=== PATIENT | female | born 1930 | race Caucasian/White ===

== ENCOUNTER → 2018-05-08 | Outpatient (CLI) | payer MEDICARE ==
[2017-11-23 07:53] VITALS: BP 120/63
[~2018-05-08] MED LIST: APIX5TAB PO; CITA10TA4 PO
--- NOTE | 2018-05-08 12:08 | KCIC ---
MRI of the lumbar spine without contrast 05/08/2018 CLINICAL HISTORY: Low back pain which radiates down the left hip for the last 2-3 months. TECHNIQUE: Unenhanced T1-weighted and T2-weighted sagittal and axial and inversion recovery sagittal images of the lumbar spine were obtained. FINDINGS: Very mild S-shaped curvature of the thoracolumbar spine is seen. Degenerative signal changes are seen involving all of the disks of the lumbar spine. An old appearing compression deformity of the superior endplate of the L1 vertebral body is seen. No retropulsion of bone fragments into the central spinal canal is noted. An acute compression fracture is seen involving the mid/inferior aspect of the L3 vertebral body. This vertebral body has lost approximately 30 percent of its normal height, centrally. No significant retropulsion of bone fragments into the central spinal canal is noted. No additional compression fracture of the lumbar vertebrae is seen. Degenerative signal changes are seen involving all of the disks of the lumbar spine. Degenerative signal changes are seen within the marrow surrounding these discs. Loss of height of the L4-5 disc is noted. The conus medullaris is normal morphology, position, and signal characteristics. Multiple perineural cysts are seen within the sacral spinal canal. These measure 1 to 2 cm in size. The changes of degenerative disc disease are seen throughout the lumbar disc spaces. These consist of minimal to mild generalized disc bulges, degenerative changes involving the facet joints and mild to moderate ligamentum flavum hypertrophy. These findings do not result in significant central spinal canal or neural foraminal stenosis at any level. IMPRESSION: An acute compression fracture is seen involving the L3 vertebral body as outlined above. No retropulsion of bone fragments into the central spinal canal is seen. Electronically signed by: Luis Reich MD (05/08/2018 12:05 PM) [facility]
== END | disposition home or self-care (01) ==
LOC: KCIC MRI 10:06
PROVIDERS: ATTEND Psychiatry & Neurology Neurology with Special Qualifications in Child Neurology
DX: S32.039A Unspecified fracture of third lumbar vertebra, initial encounter for closed fracture (principal); M51.36 Other intervertebral disc degeneration, lumbar region; C50.919 Malignant neoplasm of unspecified site of unspecified female breast; X58.XXXA Exposure to other specified factors, initial encounter; Y93.89 Activity, other specified; Y92.89 Other specified places as the place of occurrence of the external cause; Y99.8 Other external cause status
CPT/HCPCS: 72148

== ENCOUNTER 2018-05-30 08:31 | Outpatient (CLI) | payer MEDICARE ==
[~2018-05-30] VITALS: Ht 157.5 cm; Wt 48.1 kg
[2018-05-30] VITALS (9 sets, daily range): BP systolic 86–137; BP diastolic 49–79
[~2018-05-30 08:31] MED LIST changes: +ASPI81TA50 PO; +CLON0.5T11 PO; +ESCITALOPRAM OX10 MG PO; +MELO7.5T29 PO
[2018-05-30 09:01] LABS: BASO % 1 % (0-3); EOS # 0.2 x10^3/uL (0.0-0.7); EOS % 3 % (0-3); HEMATOCRIT 38.6 % (36.0-47.0); HEMOGLOBIN 13.2 g/dL (12.0-15.5); LYMPH # 1.1 x10^3/uL (1.0-4.8); LYMPH % 15 % (24-48); MEAN CORPUSCULAR HEMOGLOBIN 32 pg (25-35); MEAN CORPUSCULAR HGB CONC 34 g/dL (31-37); MEAN CORPUSCULAR VOLUME 94 fL (79-100); MONO % 14 % (0-9); NEUT # 4.6 x10^3uL (1.8-7.7); NEUT % 67 % (31-73); PLATELET COUNT 299 x10^3/uL (140-400); RED BLOOD COUNT 4.09 x10^6/uL (3.50-5.40); RED CELL DISTRIBUTION WIDTH 13.9 % (11.5-14.5); WHITE BLOOD COUNT 6.9 x10^3/uL (4.0-11.0)
[2018-05-30 09:22] LABS: PROTHROMBIN TIME PATIENT 12.8 SEC (11.7-14.0)
[2018-05-30] MEDS ORDERED: IOHEXOL 240 MG/ML 50ML VIAL. ONE (09:26)
[2018-05-30] MEDS ORDERED: LIDOCAINE WITH 8.4% SOD BICARB 3 ML DISP.SYRIN. ONE (09:26)
[2018-05-30] MEDS ORDERED: GADOBUTROL 7.5 MMOL/7.5 ML VIAL ONE ×2 (09:33→09:40)
[2018-05-30] MEDS ORDERED: MIDAZOLAM HCL/PF 2 MG/2 ML VIAL. ONE (09:36)
[2018-05-30] MEDS ORDERED: fentaNYL PF VIAL 100 MCG/2 ML VIAL ONE (09:36)
[2018-05-30] MEDS ORDERED: LIDOCAINE WITH 8.4% SOD BICARB 3 ML DISP.SYRIN. IJ ONE (10:45)
[2018-05-30] MEDS ORDERED: MIDAZOLAM HCL/PF 2 MG/2 ML VIAL. IV ONE (10:45)
[2018-05-30] MEDS ORDERED: fentaNYL PF VIAL 100 MCG/2 ML VIAL IV ONE (10:45)
[2018-05-30] MEDS ORDERED: GADOBUTROL 7.5 MMOL/7.5 ML VIAL IV ONE (10:45)
--- NOTE | 2018-05-30 12:38 | RAD ---
Fluoroscopically guided kyphoplasty, L3 05/30/2018 Indication:L3 compression fracture with significant pain refractory to conservative treatment measures. Fluoroscopy time: 7.8 minutes Dose area product: 36 Gycm2 Moderate sedation: The patient was appropriately monitored by a qualified independent observer throughout the course of the moderate sedation. Flcr-yc-nbeu sedation time:33 minutes Consent: The risks and benefits of the procedure were discussed with the patient. Informed consent was obtained. The patient was brought to the fluoroscopy suite and placed in the prone position. A timeout procedure was performed. Preprocedural antibiotics were administered. Procedure: The overlying skin was prepped and draped in the usual sterile fashion. All elements of maximal sterile barrier technique including the use of a cap, mask, sterile gown, sterile gloves, large sterile sheet, appropriate hand hygiene, and 2% chlorhexidine for cutaneous antisepsis (or acceptable alternative antiseptic per current guidelines) were followed for this procedure. Using a left transpedicular approach, and direct fluoroscopic guidance, a trocar needle was advanced to the posterior third of the targeted vertebral body. Vertebral augmentation balloon was then coaxially introduced through the needle, into the more central vertebral body and was deployed. A curved cement delivery needle was advanced into the contralateral vertebral body. Contrast opacified polymethylmethacrylate was then very slowly and carefully introduced through the vertebral augmentation needle, using strict fluoroscopic control. Once adequate filling had been achieved the needles were removed and manual pressure was held. No significant extravasation or complication was identified. Sterile dressing was applied. Patient tolerated the procedure well, without apparent complication. Impression: Fluoroscopically guided kyphoplasty, L3
--- NOTE | 2018-05-30 13:27 | NUR ---
Discharge Note: VICKIE LAU Discharge instructions and discharge home medications reviewed with Patient and a copy given. All questions have been answered and understanding verbalized. The following instructions and handouts were given: vertebralplasty aftercare and adult moderate sedation Discontinued lines and drains: Peripheral IV intact. Patient discharged to Home or Self Care withSpousevia Wheelchair
--- NOTE | 2018-05-31 18:07 | PATHOLOGY ---
[facility] Accession Number: [id number] . 01 Material submitted: . L3 CORE BIOPSY . 01 Clinical history: . L3 compression fracture . 02 Diagnosis: Segments of bone, L3 core biopsy: - Segments of hematopoietic marrow and a few bony spicules identified. See comment. . (JPM/at;05/31/2018) QTA/05/31/2018 . 02 Comment: Sections of the L3 core biopsy reveal segments of hematopoietic marrow and few bony spicules. There is no evidence of metastatic carcinoma or lymphoma. There is no evidence of a plasma cell neoplasm. . (JPM/at;05/31/2018) . 02 Electronically signed: . rTell Collins MD, Pathologist NPI- [id number] . 01 Gross description: . Received in formalin labeled "Deborah Matos, L3 biopsy," are 2 needle cores of dark smith bone measuring 0.4 and 0.9 cm in length and 0.3 cm each in diameter. The specimen is filtered and entirely submitted in cassette A1, following decalcification. (TSD; 05/30/2018) TOB/TOB . 02 Pathologist provided ICD-10: M89.9 . 02 CPT . 344872, [id number] Specimen Comment: A courtesy copy of this report has been sent to Specimen Comment: [phone]. Specimen Comment: Report sent to Performed at: 01 [facility] [address], [place] [id number] MD Rodrigue Waller MD Phone: [phone] Performed at: 02 [facility] [address] [place], [place] [id number] MD Trell Collins MD Phone: [phone]
== END 2018-05-30 13:15 | disposition home or self-care (01) ==
LOC: INTRAD 08:31
PROVIDERS: ATTEND Surgery
DX: M48.56XA Collapsed vertebra, not elsewhere classified, lumbar region, initial encounter for fracture (principal)
CPT/HCPCS: 22514; 36415; 85025; 85610; 85730; 88307; 88311; A9585; C1713; J0690; J2250; J3010; 99152; 99153; C1758

== ENCOUNTER 2019-01-18 02:32 | Inpatient (IN) | payer MEDICARE ==
[~2019-01-18] VITALS: Ht 154.9 cm; Wt 48.1 kg
[~2019-01-18 02:32] MED LIST changes: +ACET325T9 PO; +AMOX1TAB10 PO; +LACT1CAP19 PO; +LIDO700A21 TD
[2019-01-18 03:22] LABS: BASO % 0 % (0-3); EOS % 0 % (0-3); HEMATOCRIT 35.4 % (36.0-47.0); HEMOGLOBIN 12.2 g/dL (12.0-15.5); LYMPH # 0.9 x10^3/uL (1.0-4.8); LYMPH % 8 % (24-48); MEAN CORPUSCULAR HEMOGLOBIN 32 pg (25-35); MEAN CORPUSCULAR HGB CONC 35 g/dL (31-37); MEAN CORPUSCULAR VOLUME 91 fL (79-100); MONO # 1.1 x10^3/uL (0.0-1.1); MONO % 10 % (0-9); NEUT % 82 % (31-73); PLATELET COUNT 391 x10^3/uL (140-400); RED BLOOD COUNT 3.89 x10^6/uL (3.50-5.40); RED CELL DISTRIBUTION WIDTH 12.9 % (11.5-14.5)
[2019-01-18] MEDS ORDERED: fentaNYL PF VIAL 100 MCG/2 ML VIAL IV ONE ×2 (03:30→04:30)
[2019-01-18] MEDS ORDERED: IV NORMAL SALINE 1000ML BAG 1,000 ML IV ONE (03:30)
[2019-01-18 03:31] LABS: PROTHROMBIN TIME PATIENT 12.1 SEC (11.7-14.0)
[2019-01-18 03:38] LABS: ALBUMIN 3.6 g/dL (3.4-5.0); ALBUMIN/GLOBULIN RATIO 0.9 (1.0-1.7); CALCIUM 9.7 mg/dL (8.5-10.1); CREATININE 0.5 mg/dL (0.6-1.0); MAGNESIUM 1.9 mg/dL (1.8-2.4); TOTAL BILIRUBIN 0.6 mg/dL (0.2-1.0); TOTAL PROTEIN 7.5 g/dL (6.4-8.2)
--- NOTE | 2019-01-18 03:42 | PHYS DOC ---
Past Medical History Past Medical History: Anxiety, Cancer Additional Past Medical Histor: BREAST CANCER Past Surgical History: Hysterectomy, Tonsillectomy, Other Additional Past Surgical Histo: RIGHT MASTECTOMY Additional Information: Nonsmoker Alcohol Use: Occasionally (1 shot of Fireball per day) Drug Use: None Adult General Chief Complaint Chief Complaint: MECHANICAL FALL HPI HPI Ms. Matos is an 88yo F w/ PMH significant for anxiety and breast cancer presents via EMS following mechanical fall at home. She fell twice tonight with the most recent occurring at approximated 2:45 AM when the patient attempted to get out of bed and use the restroom. She fell forward, hitting her head but denies LOC, blurry vision, or VELEZ. She landed on her left hip and knee and complains of severe, 10/10, left hip pain that does not radiate. Earlier in the evening, the patient fell backwards hitting her head and causing a hematoma to form as well as a minor right elbow abrasion. She has a history of falls with the previous event occurring about 1 month ago and required staying at a rehabilitation facility. Review of Systems Review of Systems Constitutional: Denies fever or chills Eyes: Denies redness or eye pain HENT: Denies nasal congestion or sore throat Respiratory: Denies cough or shortness of breath Cardiovascular: Denies chest pain or palpitations GI: Denies abdominal pain, nausea, vomiting, diarrhea, constipation, or hematochezia : Denies dysuria or hematuria Musculoskeletal: Reports left hip pain, right elbow tenderness, and left frontal head tenderness. Denies back pain or other joint pain Integument: Denies rash or skin lesions; reports forehead and scalp contusion; reports elbow abrasion Neurologic: Reports headache; denies focal weakness or sensory changes Complete systems were reviewed and found to be within normal limits, except as documented in this note. Current Medications Current Medications Current Medications Medications (Trade) Dose Ordered Sig/Colten Start Time Stop Time Status Last Admin Dose Admin Fentanyl Citrate (Fentanyl 2ml Vial) 50 mcg 1X ONCE 01/18/19 03:30 01/18/19 03:31 DC 01/18/19 03:30 50 MCG Sodium Chloride 1,000 ml @ 1,000 mls/hr 1X ONCE 01/18/19 03:30 01/18/19 04:29 DC 01/18/19 03:40 1,000 MLS/HR Allergies Allergies Allergies Coded Allergies Type Severity Reaction Last Updated Verified iodine Allergy Intermediate IV dye- hives 05/15/18 Yes Physical Exam Physical Exam Constitutional: Well developed, well nourished, no acute distress, non-toxic appearance HENT: Normocephalic, atraumatic, oropharynx moist, 1cm contusion posterior right head, 4cm hematoma left frontal head Eyes: PERRL, EOMI, conjunctiva normal, no discharge Neck: Normal range of motion, supple, mild left-sided neck tenderness, no midline cervical tenderness Cardiovascular: Heart rate normal, regular rhythm w/o gallops, rubs, or murmurs. UE radial pulse intact 2/4 b/l Lungs & Thorax: Bilateral breath sounds clear to auscultation, no wheezing Abdomen: Soft, no tenderness, non-distended; pelvis stable and nontender Skin: Warm, dry, no erythema, no rash, ecchymosis to left forehead, abrasion to right elbow Back: No midline tenderness, no CVA tenderness Extremities: Mild right elbow tenderness w/ small laceration, left LE ROM limited due to pain, no edema, severe left hip tenderness Neurologic: Alert and oriented X 3, normal motor function, normal sensory function, no focal deficits noted Psychologic: Affect normal, judgement normal Current Patient Data Vital Signs Vital Signs Date Time Temp Pulse Resp B/P (MAP) Pulse Ox O2 Delivery O2 Flow Rate FiO2 01/18/19 03:30 20 Room Air 01/18/19 03:00 80 96 01/18/19 02:32 97.7 150/75 (100) 97.7 Lab Values Laboratory Tests Test 01/18/19 02:50 White Blood Count 11.0 x10^3/uL (4.0-11.0) Red Blood Count 3.89 x10^6/uL (3.50-5.40) Hemoglobin 12.2 g/dL (12.0-15.5) Hematocrit 35.4 % (36.0-47.0) L Mean Corpuscular Volume 91 fL (79-100) Mean Corpuscular Hemoglobin 32 pg (25-35) Mean Corpuscular Hemoglobin Concent 35 g/dL (31-37) Red Cell Distribution Width 12.9 % (11.5-14.5) Platelet Count 391 x10^3/uL (140-400) Neutrophils (%) (Auto) 82 % (31-73) H Lymphocytes (%) (Auto) 8 % (24-48) L Monocytes (%) (Auto) 10 % (0-9) H Eosinophils (%) (Auto) 0 % (0-3) Basophils (%) (Auto) 0 % (0-3) Neutrophils # (Auto) 9.0 x10^3/uL (1.8-7.7) H Lymphocytes # (Auto) 0.9 x10^3/uL (1.0-4.8) L Monocytes # (Auto) 1.1 x10^3/uL (0.0-1.1) Eosinophils # (Auto) 0.0 x10^3/uL (0.0-0.7) Basophils # (Auto) 0.0 x10^3/uL (0.0-0.2) Prothrombin Time 12.1 SEC (11.7-14.0) Prothrombin Time INR 0.9 (0.8-1.1) Activated Partial Thromboplast Time 26 SEC (24-38) Sodium Level 118 mmol/L (136-145) *L Potassium Level 2.9 mmol/L (3.5-5.1) *L Chloride Level 81 mmol/L (98-107) L Carbon Dioxide Level 27 mmol/L (21-32) Anion Gap 10 (6-14) Blood Urea Nitrogen 11 mg/dL (7-20) Creatinine 0.5 mg/dL (0.6-1.0) L Estimated GFR (Cockcroft-Gault) 117.0 BUN/Creatinine Ratio 22 (6-20) H Glucose Level 126 mg/dL (70-99) H Calcium Level 9.7 mg/dL (8.5-10.1) Magnesium Level 1.9 mg/dL (1.8-2.4) Total Bilirubin 0.6 mg/dL (0.2-1.0) Aspartate Amino Transferase (AST) 24 U/L (15-37) Alanine Aminotransferase (ALT) 18 U/L (14-59) Alkaline Phosphatase 130 U/L (46-116) H Creatine Kinase 112 U/L (26-192) Creatine Kinase MB (Mass) 3.6 ng/mL (0.0-3.6) Creatine Kinase MB Relative Index 3.2 % (0-4) Troponin I Quantitative < 0.017 ng/mL (0.000-0.055) Total Protein 7.5 g/dL (6.4-8.2) Albumin 3.6 g/dL (3.4-5.0) Albumin/Globulin Ratio 0.9 (1.0-1.7) L Laboratory Tests 01/18/19 02:50 Laboratory Tests 01/18/19 02:50 EKG EKG EKG obtained @ 0346 and read @ 0347. EKG NSR w/o ST-elevation changes. 84 BMI.[] Radiology/Procedures Radiology/Procedures Left Hip/Pelvis X-Ray: IMPRESSION: 1. Comminuted intertrochanteric fracture of the proximal left femur with mild medial angulation. 2. Degenerative changes as described. CXR: IMPRESSION: No acute radiographic abnormality. Stable findings compared to November 22, 2017. Head / Neck CT w/o Contrast: IMPRESSION HEAD: 1. No acute intracranial abnormality. 2. Mild chronic small vessel ischemic changes and atrophy. IMPRESSION CERVICAL SPINE: 1. No evidence of fracture or malalignment. 2. Mild multilevel spondylosis. [] Course & Med Decision Making Course & Med Decision Making Pertinent Labs and Imaging studies reviewed. (See chart for details) Patient presented following mechanical fall. Neurologically intact. Left hip and pelvic x-ray revealed an intertrochanteric fracture. CXR shows no acute processes. Head and neck CT shows no acute processes. Sodium 118, potassium 2.9. Hx of low sodium per family. 0.9% NS bolus provided. FeNA labs ordered and pending. Patient requiring admission for further evaluation and treatment. Discussed with Dr. Argueta (hospitalist) who is in agreement with admission. Consult placed to Dr. Grossman (orthopedics) and Dr. Restrepo (nephrology). Discussed findings and plan with patient and family, who acknowledge understanding and agreement. Dragon Disclaimer Dragon Disclaimer This electronic medical record was generated, in whole or in part, using a voice recognition dictation system. Departure Departure Impression: Primary Impression: Hyponatremia Additional Impressions: Intertrochanteric fracture Hypokalemia Fall Disposition: 09 ADMITTED INPATIENT Admitting Physician: ALVARO (Kendall) Condition: GUARDED Referrals: ELISA MITCHELL MD (PCP) Critical Care Time Critical care time was 30 minutes which includes time at bedside, spent in discussion of patient's care with specialists and/or family members, with interpretation of laboratory and/or radiological studies and is exclusive of pr ocedures. Problem Qualifiers Additional Impressions: Intertrochanteric fracture Encounter type: initial encounter Fracture type: closed Fracture alignment: displaced Laterality: left Qualified Codes: S72.142A - Displaced intertrochanteric fracture of left femur, initial encounter for closed fracture Fall Encounter type: initial encounter Qualified Codes: W19.XXXA - Unspecified fall, initial encounter SHEA CARO DO Jan 18, 2019 03:41
[2019-01-18 03:44] LABS: POTASSIUM 2.9 mmol/L (3.5-5.1)
[2019-01-18] MEDS ORDERED: POTASSIUM CHLORIDE 20 MEQ TABLET.ER. PO ONE (04:00)
[2019-01-18] MEDS ORDERED: fentaNYL PF VIAL 100 MCG/2 ML VIAL IV PRN (04:00)
[2019-01-18] MEDS ORDERED: ONDANSETRON PF 4 MG/2 ML VIAL. IV PRN (04:00)
--- NOTE | 2019-01-18 04:02 | RAD ---
CT head without contrast and CT cervical spine without contrast dated 01/18/2019. Comparison December 03, 2018. TECHNIQUE: Contiguous axial imaging of the head performed from skull base to vertex. In addition, axial imaging of the cervical spine acquired with thin cut coronal and sagittal reconstruction. One or more of the following individualized dose reduction techniques were utilized for this examination: 1. Automated exposure control 2. Adjustment of the mA and/or kV according to patient size 3. Use of iterative reconstruction technique. FINDINGS: Ventricles and sulci are mildly prominent for age. No midline shift or mass effect. Mild patchy low density in the deep/subcortical periventricular white matter. No hemorrhage or extra-axial collection. There is some dystrophic calcification of the bilateral globus pallidus, unchanged. Posterior fossa and brainstem otherwise unremarkable. Visualized paranasal sinuses and mastoid air cells are clear. No acute calvarial abnormality. Images of the cervical spine show slight anterolisthesis of C3 on C4. Sagittal alignment is otherwise anatomic. No prevertebral soft tissue swelling. Posterior elements are intact. Vertebral body heights are maintained. Mild to moderate endplate hypertrophic changes throughout. There is multilevel uncovertebral spurring. Slight anterolisthesis of C3 on C4 with slight retrolisthesis of C4 on C5 and C5 on C6. Prominent uncovertebral spurring at these levels with mild to moderate facet arthropathy. Findings combine to result in moderate to severe right foraminal stenosis. There is mild central canal narrowing at C4-C5 and C5-C6. Visualized soft tissue structures unremarkable. Mild biapical scarring. IMPRESSION HEAD: 1. No acute intracranial abnormality. 2. Mild chronic small vessel ischemic changes and atrophy. Impression cervical spine: 1. No evidence of fracture or malalignment. 2. Mild multilevel spondylosis. Electronically signed by: Osmany Fink MD (01/18/2019 3:59 AM) [place] [id number]
[2019-01-18 04:03] LABS: BILIRUBIN,URINE NEGATIVE (NEG); CLARITY,URINE CLEAR; COLOR,URINE YELLOW; NITRITE,URINE NEGATIVE (NEG); PH,URINE 6.5; PROTEIN,URINE NEGATIVE (NEG-TRACE); UROBILINOGEN,URINE 0.2 mg/dL (0.2 mg/dL)
--- NOTE | 2019-01-18 04:03 | RAD ---
Single view chest dated 01/18/2019. Comparison 06/24/2017. CLINICAL INDICATION: Pain after fall. FINDINGS: Single supine portable exam performed. Heart and mediastinal contours are stable. Lungs are somewhat hyperinflated but otherwise clear. No consolidation or pleural effusion. No pneumothorax. Small nodular focus at the right mid zone is unchanged from prior study. No pneumothorax. IMPRESSION: No acute radiographic abnormality. Stable findings compared to November 22, 2017. Electronically signed by: Osmany Fink MD (01/18/2019 4:00 AM) [facility]
--- NOTE | 2019-01-18 04:06 | RAD ---
View pelvis and two-view left hip dated 01/18/2019. No comparison available. CLINICAL INDICATION: Single view pelvis and two-view left hip show comminuted intertrochanteric fracture left femur with mild medial angulation at the fracture site. There are displaced fragments of the greater and lesser trochanter. The pelvic ring is intact. No additional fractures are seen. Moderate degenerative change of the bilateral hip joint mild bilateral SI joint arthropathy. Compression deformity at L3 status post vertebroplasty. Multilevel spondylosis. IMPRESSION: 1. Comminuted intertrochanteric fracture of the proximal left femur with mild medial angulation. 2. Degenerative changes as described. Electronically signed by: Osmany Fink MD (01/18/2019 4:03 AM) [facility]
[2019-01-18 04:13] LABS: BACTERIA,URINE 0 /HPF (0-FEW); HYALINE CASTS, URINE FEW /HPF; WBC,URINE OCC /HPF (0-4)
[2019-01-18 05:26] VITALS: BP 148/80
[2019-01-18] MEDS: fentaNYL PF VIAL 100 MCG/2 ML VIAL IV PRN ×3 (06:44→22:46)
[2019-01-18 07:00] VITALS: BP 108/67
--- NOTE | 2019-01-18 07:35 | EKG ---
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
--- NOTE | 2019-01-18 08:02 | NUR ---
Chart review done. Pt w/ recent falls and may benefit from PT/OT Eval and Treat. Please order if agree. Addendum: 01/18/19 at 0805 by FABIOLA MULLER OT Amended: Links added.
[2019-01-18 11:00] VITALS: BP 94/53
[2019-01-18] MEDS: IV NORMAL SALINE 1000ML BAG 1,000 ML IV SCH (11:40)
[2019-01-18] MEDS: POTASSIUM CHLORIDE 10MEQ 100 ML IV SCH ×4 (11:41→15:49)
[2019-01-18] MEDS: MORPHINE SULFATE 2 MG/ML VIAL. IV PRN ×3 (11:42→21:51)
[2019-01-18] MEDS ORDERED: ESCITALOPRAM OX10 MG PO (12:32)
[2019-01-18] MEDS ORDERED: ACET500T68 PO (12:32)
[2019-01-18] MEDS ORDERED: MEMA10TA PO (12:32)
[2019-01-18] MEDS: MELOXICAM 7.5 MG TABLET PO SCH (12:50)
[2019-01-18] MEDS: ASPIRIN ENTERIC COATED 81 MG TABLET.DR. PO SCH (12:50)
--- NOTE | 2019-01-18 13:07 | HP ---
ADMIT DATE: 01/18/2019 CHIEF COMPLAINT: Fall with hip pain. HISTORY OF PRESENT ILLNESS: The patient is a pleasant 88-year-old female who fell and suffered right hip pain. We did some imaging. She does have a right hip fracture, but interestingly she also has severe hyponatremia with a sodium level of 118 and potassium is low at 2.9. I discussed the case with ER physician. We are going to admit the patient and consult Nephrology and Orthopedics. PAST MEDICAL HISTORY: Breast cancer with mastectomy, anxiety, hysterectomy and tonsillectomy. ALLERGIES: IODINE. FAMILY HISTORY: Hypertension. SOCIAL HISTORY: She does not drink, smoke or take drugs. MEDICATIONS: Reviewed, please refer to the MRAD. REVIEW OF SYSTEMS: GENERAL: No history of weight change, weakness or fevers. SKIN: No bruising, hair changes or rashes. EYES: No blurred, double or loss of vision. NOSE AND THROAT: No history of nosebleeds, hoarseness or sore throat. HEART: No history of palpitations, chest pain or shortness of breath on exertion. LUNGS: Denies cough, hemoptysis, wheezing or shortness of breath. GASTROINTESTINAL: Denies changes in appetite, nausea, vomiting, diarrhea or constipation. GENITOURINARY: No history of frequency, urgency, hesitancy or nocturia. NEUROLOGIC: Denies history of numbness, tingling, tremor or weakness. PSYCHIATRIC: No history of panic, anxiety or depression. ENDOCRINE: No history of heat or cold intolerance, polyuria or polydipsia. EXTREMITIES: Denies muscle weakness, joint pain, pain on walking or stiffness. MUSCULOSKELETAL: She complains of right hip pain. PHYSICAL EXAMINATION: VITALS: Within normal limits and are stable. GENERAL: No apparent distress. Alert and oriented. HEENT: Head is normocephalic, atraumatic, pupils were equally round and reactive to light and accommodation. NECK: Supple, no JVD, no thyromegaly was noted. LUNGS: Clear to auscultation in all lung neal without rhonchi or wheezing. HEART: RRR, S1, S2 present. Peripheral pulses intact, no obvious murmurs were noted. ABDOMEN: Soft, nontender. Positive bowel sounds no organomegaly, normal bowel sounds. EXTREMITIES: Without any cyanosis, clubbing, or edema. Pedal pulses intact, Homans sign is negative. NEUROLOGIC: Normal speech, normal tone. A & O x3, moves all extremities, no obvious focal deficits. PSYCHIATRIC: Normal affect, normal mood. Stable. SKIN: No ulcerations or rashes, good skin turgor, no jaundice. VASCULAR: Good capillary refill, neurovascular bundle appears to be intact. LABORATORY DATA: Sodium is 118, potassium 2.9, glucose 126, creatinine 0.5, BUN is 11. Hemoglobin is 12. ASSESSMENT AND PLAN: Fall with hip fracture with incidental finding of severe hyponatremia. The patient has been admitted. We will give her IV normal saline 75 mL an hour. Consult Nephrology, consult Oncology, consult Orthopedics, p.r.n. morphine, home meds, PT, OT, frequent labs. PROGNOSIS: Guarded. JELANI JORDAN DO DR: ROLAN/jonathan JOB#: [id number] / [id number]
[2019-01-18] MEDS: ACETAMINOPHEN 500 MG TABLET PO SCH ×2 (14:43→21:50)
[2019-01-18 15:00] VITALS: BP 109/52
--- NOTE | 2019-01-18 16:00 | NUR ---
SW following pt for dc planning. Chart reviewed and pt lives at home with spouse. PT/OT pending. SW will await for PT/OT recommendation to assess skilled needs. Will continue to follow.
--- NOTE | 2019-01-18 16:41 | PDOC2 ---
CONSULT Date of Consult Date of Consult DATE: 01/18/19 TIME: 16:31 History of Present Illness Reason for Visit: THIS IS AN 88 YR OLD WITH A FALL. IMAGING POS FOR LEFT FEMUR INTRATROCHANTERIC FRACTURE AND HER ELECTROLYTES ARE ABNORMAL WITH NA OS 118 AND K OF 2.9. SOME CONFUSION AND TENDENCY TO FALL FOR ABOUT A MONTH. Past Medical History Cardiovascular: HTN GI: Constipation Heme/Onc: Other (BREAST CANCER) Psych: Anxiety Past Surgical History Past Surgical History: Mastectomy, Tonsillectomy, Hysterectomy Family History Family History: No Significant, Hypertension Social History ALCOHOL: none Drugs: None Lives: Roommate Current Problem List Problem List Problems Medical Problems: (1) Hyponatremia Status: Acute Current Medications Current Medications Current Medications Sodium Chloride 1,000 ml @ 1,000 mls/hr 1X ONCE IV Last administered on 01/18/19at 03:40; Start 01/18/19 at 03:30; Stop 01/18/19 at 04:29; Status DC Fentanyl Citrate (Fentanyl 2ml Vial) 50 mcg 1X ONCE IV Last administered on 01/18/19at 03:30; Start 01/18/19 at 03:30; Stop 01/18/19 at 03:31; Status DC Potassium Chloride (Klor-Con) 40 meq 1X ONCE PO Last administered on 01/18/19at 04:18; Start 01/18/19 at 04:00; Stop 01/18/19 at 04:01; Status DC Ondansetron HCl (Zofran) 4 mg PRN Q8HRS PRN IV NAUSEA/VOMITING 1ST CHOICE; Start 01/18/19 at 04:00; Stop 01/19/19 at 03:59 Fentanyl Citrate (Fentanyl 2ml Vial) 25 mcg PRN Q2HRS PRN IV SEVERE PAIN 7-10; Start 01/18/19 at 04:00; Stop 01/18/19 at 04:03; Status DC Fentanyl Citrate (Fentanyl 2ml Vial) 50 mcg 1X ONCE IV Last administered on at 04:18; Start 01/18/19 at 04:30; Stop 01/18/19 at 04:31; Status DC Fentanyl Citrate (Fentanyl 2ml Vial) 50 mcg PRN Q2HRS PRN IV SEVERE PAIN 7-10 Last administered on 01/18/19at 09:14; Start 01/18/19 at 04:15 Morphine Sulfate (Morphine Sulfate) 2 mg PRN Q2HR PRN IV MODERATE PAIN Last administered on 01/18/19at 11:42; Start 01/18/19 at 11:15 Sodium Chloride 1,000 ml @ 75 mls/hr [id number] IV Last administered on 01/18/19at 11:42; Start 01/18/19 at 11:15 Potassium Chloride/Water 100 ml @ 100 mls/hr Q1H IV Last administered on 01/18/19at 15:50; Start 01/18/19 at 12:00; Stop 01/18/19 at 15:59; Status DC Acetaminophen (Tylenol) 1,000 mg TID PO Last administered on 01/18/19at 14:44; Start 01/18/19 at 14:00 Aspirin (Ecotrin) 81 mg DAILY PO Last administered on 01/18/19at 12:50; Start 01/18/19 at 13:00 Meloxicam (Mobic) 15 mg DAILY PO Last administered on 01/18/19at 12:50; Start 01/18/19 at 13:00 Memantine (Namenda) 10 mg BID PO ; Start 01/18/19 at 21:00 Citalopram Hydrobromide (CeleXA) 10 mg Q48H PO ; Start 01/19/19 at 09:00 Active Scripts Active Reported Escitalopram Oxalate 10 Mg Tablet 5 Mg PO QODAY Acetaminophen 500 Mg Tablet 2 Tab PO TID Namenda (Memantine Hcl) 10 Mg Tablet 1 Tab PO BID Meloxicam 7.5 Mg Tablet 2 Tab PO DAILY Aspir-Low (Aspirin) 81 Mg Tablet.dr 1 Tab PO DAILY Allergies Allergies: Coded Allergies: iodine (Verified Allergy, Intermediate, IV dye- hives, 05/15/18) ROS Review of System CONFUSED Physical Exam General: Cooperative, No acute distress HEENT: Atraumatic Lungs: Clear to auscultation Heart: Regular rate Abdomen: Normal bowel sounds, Soft, No tenderness Extremities: No cyanosis Neuro: Sensation intact Psych/Mental Status: Other (CONFUSION) MUSCULOSKELETAL: No deformity Vitals VITALS Vital Signs Date Time Temp Pulse Resp B/P (MAP) Pulse Ox O2 Delivery O2 Flow Rate FiO2 01/18/19 15:00 98.1 90 20 109/52 (71) 96 Room Air 98.1 Labs Labs Laboratory Tests Test 01/18/19 02:50 01/18/19 03:56 01/18/19 06:30 01/18/19 09:45 White Blood Count 11.0 x10^3/uL (4.0-11.0) Red Blood Count 3.89 x10^6/uL (3.50-5.40) Hemoglobin 12.2 g/dL (12.0-15.5) Hematocrit 35.4 % (36.0-47.0) Mean Corpuscular Volume 91 fL (79-100) Mean Corpuscular Hemoglobin 32 pg (25-35) Mean Corpuscular Hemoglobin Concent 35 g/dL (31-37) Red Cell Distribution Width 12.9 % (11.5-14.5) Platelet Count 391 x10^3/uL (140-400) Neutrophils (%) (Auto) 82 % (31-73) Lymphocytes (%) (Auto) 8 % (24-48) Monocytes (%) (Auto) 10 % (0-9) Eosinophils (%) (Auto) 0 % (0-3) Basophils (%) (Auto) 0 % (0-3) Neutrophils # (Auto) 9.0 x10^3/uL (1.8-7.7) Lymphocytes # (Auto) 0.9 x10^3/uL (1.0-4.8) Monocytes # (Auto) 1.1 x10^3/uL (0.0-1.1) Eosinophils # (Auto) 0.0 x10^3/uL (0.0-0.7) Basophils # (Auto) 0.0 x10^3/uL (0.0-0.2) Prothrombin Time 12.1 SEC (11.7-14.0) Prothromb Time International Ratio 0.9 (0.8-1.1) Activated Partial Thromboplast Time 26 SEC (24-38) Sodium Level 118 mmol/L (136-145) Potassium Level 2.9 mmol/L (3.5-5.1) Chloride Level 81 mmol/L (98-107) Carbon Dioxide Level 27 mmol/L (21-32) Anion Gap 10 (6-14) Blood Urea Nitrogen 11 mg/dL (7-20) Creatinine 0.5 mg/dL (0.6-1.0) Estimated GFR (Cockcroft-Gault) 117.0 BUN/Creatinine Ratio 22 (6-20) Glucose Level 126 mg/dL (70-99) Calcium Level 9.7 mg/dL (8.5-10.1) Magnesium Level 1.9 mg/dL (1.8-2.4) Total Bilirubin 0.6 mg/dL (0.2-1.0) Aspartate Amino Transf (AST/SGOT) 24 U/L (15-37) Alanine Aminotransferase (ALT/SGPT) 18 U/L (14-59) Alkaline Phosphatase 130 U/L (46-116) Creatine Kinase 112 U/L (26-192) Creatine Kinase MB (Mass) 3.6 ng/mL (0.0-3.6) Creatine Kinase MB Relative Index 3.2 % (0-4) Troponin I Quantitative < 0.017 ng/mL (0.000-0.055) < 0.017 ng/mL (0.000-0.055) < 0.017 ng/mL (0.000-0.055) Total Protein 7.5 g/dL (6.4-8.2) Albumin 3.6 g/dL (3.4-5.0) Albumin/Globulin Ratio 0.9 (1.0-1.7) Urine Collection Type U cath Urine Color Yellow Urine Clarity Clear Urine pH 6.5 Urine Specific [place] 1.015 Urine Protein Negative mg/dL (NEG-TRACE) Urine Glucose (UA) Negative mg/dL (NEG) Urine Ketones (Stick) 40 mg/dL (NEG) Urine Blood Negative (NEG) Urine Nitrite Negative (NEG) Urine Bilirubin Negative (NEG) Urine Urobilinogen Dipstick 0.2 mg/dL (0.2 mg/dL) Urine Leukocyte Esterase Negative (NEG) Urine RBC 1-2 /HPF (0-2) Urine WBC Occ /HPF (0-4) Urine Squamous Epithelial Cells None /LPF Urine Bacteria 0 /HPF (0-FEW) Urine Hyaline Casts Few /HPF Urine Mucus Slight /LPF Urine Random Creatinine 33.5 mg/dL (Not Establ.) Test 01/18/19 14:50 Sodium Level 122 mmol/L (136-145) Laboratory Tests Test 01/18/19 02:50 01/18/19 03:56 01/18/19 06:30 8/16/19 09:45 White Blood Count 11.0 x10^3/uL (4.0-11.0) Red Blood Count 3.89 x10^6/uL (3.50-5.40) Hemoglobin 12.2 g/dL (12.0-15.5) Hematocrit 35.4 % (36.0-47.0) Mean Corpuscular Volume 91 fL (79-100) Mean Corpuscular Hemoglobin 32 pg (25-35) Mean Corpuscular Hemoglobin Concent 35 g/dL (31-37) Red Cell Distribution Width 12.9 % (11.5-14.5) Platelet Count 391 x10^3/uL (140-400) Neutrophils (%) (Auto) 82 % (31-73) Lymphocytes (%) (Auto) 8 % (24-48) Monocytes (%) (Auto) 10 % (0-9) Eosinophils (%) (Auto) 0 % (0-3) Basophils (%) (Auto) 0 % (0-3) Neutrophils # (Auto) 9.0 x10^3/uL (1.8-7.7) Lymphocytes # (Auto) 0.9 x10^3/uL (1.0-4.8) Monocytes # (Auto) 1.1 x10^3/uL (0.0-1.1) Eosinophils # (Auto) 0.0 x10^3/uL (0.0-0.7) Basophils # (Auto) 0.0 x10^3/uL (0.0-0.2) Prothrombin Time 12.1 SEC (11.7-14.0) Prothromb Time International Ratio 0.9 (0.8-1.1) Activated Partial Thromboplast Time 26 SEC (24-38) Sodium Level 118 mmol/L (136-145) Potassium Level 2.9 mmol/L (3.5-5.1) Chloride Level 81 mmol/L (98-107) Carbon Dioxide Level 27 mmol/L (21-32) Anion Gap 10 (6-14) Blood Urea Nitrogen 11 mg/dL (7-20) Creatinine 0.5 mg/dL (0.6-1.0) Estimated GFR (Cockcroft-Gault) 117.0 BUN/Creatinine Ratio 22 (6-20) Glucose Level 126 mg/dL (70-99) Calcium Level 9.7 mg/dL (8.5-10.1) Magnesium Level 1.9 mg/dL (1.8-2.4) Total Bilirubin 0.6 mg/dL (0.2-1.0) Aspartate Amino Transf (AST/SGOT) 24 U/L (15-37) Alanine Aminotransferase (ALT/SGPT) 18 U/L (14-59) Alkaline Phosphatase 130 U/L (46-116) Creatine Kinase 112 U/L (26-192) Creatine Kinase MB (Mass) 3.6 ng/mL (0.0-3.6) Creatine Kinase MB Relative Index 3.2 % (0-4) Troponin I Quantitative < 0.017 ng/mL (0.000-0.055) < 0.017 ng/mL (0.000-0.055) < 0.017 ng/mL (0.000-0.055) Total Protein 7.5 g/dL (6.4-8.2) Albumin 3.6 g/dL (3.4-5.0) Albumin/Globulin Ratio 0.9 (1.0-1.7) Urine Collection Type U cath Urine Color Yellow Urine Clarity Clear Urine pH 6.5 Urine Specific [place] 1.015 Urine Protein Negative mg/dL (NEG-TRACE) Urine Glucose (UA) Negative mg/dL (NEG) Urine Ketones (Stick) 40 mg/dL (NEG) Urine Blood Negative (NEG) Urine Nitrite Negative (NEG) Urine Bilirubin Negative (NEG) Urine Urobilinogen Dipstick 0.2 mg/dL (0.2 mg/dL) Urine Leukocyte Esterase Negative (NEG) Urine RBC 1-2 /HPF (0-2) Urine WBC Occ /HPF (0-4) Urine Squamous Epithelial Cells None /LPF Urine Bacteria 0 /HPF (0-FEW) Urine Hyaline Casts Few /HPF Urine Mucus Slight /LPF Urine Random Creatinine 33.5 mg/dL (Not Establ.) Test 01/18/19 14:50 Sodium Level 122 mmol/L (136-145) Assessment/Plan Assessment/Plan IMP HYPOTENSION SEVERE HYPONATREMIA SEVERE HYPOKALEMIAFF MET ENCEPHALOPATHY LEFT HIP FRACTURE PLAN AM CORTISOL AVOID OROSCO-2 INHIBITORS CHECK URINE LYTES CORRECT K ISOTONIC SALINE MAY NEED 3% SALINE WILL FOLLOW NADYA MAHAJAN MD Jan 18, 2019 16:40
--- NOTE | 2019-01-18 17:57 | PDOC2 ---
CONSULT Date of Consult Date of Consult DATE: 01/18/19 TIME: 17:44 Reason for consultation: History of breast cancer and hip fracture Consult: Hematology oncology, Dr. Erika Strauss History of present illness: she is an 88-year-old female with a history of DVT and PE and breast cancer, admitted with a left hip fracture, acute, with pain t hat is moderately severe and improved with morphine, worsened due to a fall last night at about 2 in the morning, she is also had a fall about 9:30 last night, she's also had some associated confusion for the past few weeks and has hyponatremia and hypokalemia. Her is here with her. He states her memory is pretty bad for most things at this point. She is very pleasant but does have to repeat a question or 2. 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 Past surgical history: Hysterectomy Myomectomy Bilateral salpingoophorectomy Breast biopsy Breast lumpectomy Mastectomy Lymph node biopsy Kyphoplasty Appendectomy Allergies: Iodine, aspirin causes indigestion Medications: See attached list Social history: Lives with her , children help care for her as well, in the past has had a cocktail nightly, never smoker Family history: Osteoporosis, no known history of cancer Review of systems: Weakness, confusion, falling, memory loss, hip pain, joint pains, depression and anxiety, restless legs, otherwise 10 point review of systems negative Physical exam: Vitals reviewed Gen.: thin elderly female in bed in no acute distress HEENT: mucous membranes moist, head normocephalic atraumatic Neck: Supple, no lymphadenopathy Lymph nodes: No palpable lymphadenopathy neck or axilla Lungs: Breathing comfortably w/o respiratory distress Heart: Regular rate and rhythm Abdomen: Soft, nontender, nondistended Extremities: No cyanosis or signif edema, pain w/ movement of L hip Skin: No obvious rashes or skin breakdown Neuro: Alert but forgetful, helps w/ history, hard of hearing Psych: pleasant mood and affect Lab reviewed: White count 11, hemoglobin 12.2, platelets 391 Coags normal Creatinine 0.5 Sodium 118 Potassium 2.9 Rads reviewed: Chest x-ray no acute radiographic abnl Head and C-spine CT with contrast shows spondylosis, mild chronic small vessel ischemic changes, no acute abnormalities Case discussed with: Pt, her , records reviewed in [facility] and [facility], including labs and radiology, please see note for summary details. Assessment and Plan: She is an 88-year-old female with a fall sustaining a left hip fracture, with history of breast cancer and DVT and PE postoperatively, unfo rtunately with hyponatremia and hypokalemia Hyponatremia and hypokalemia: Deferred to primary History of DVT and PE: Would recommend Lovenox prophylaxis, we'll not start now as she has not yet seen orthopedics but if not getting surgery would recommend L ovenox 40 mg daily prophylaxis Left hip fracture: Pending orthopedic consultation History of breast cancer: We'll check CA 27.29, of all of her imaging recently no breast cancer has been noted, if CA 27.29 is elevated can consider CT chest abdomen and pelvis, recent CT head with contrast without concern and I do suspect her fractures are related to osteoporosis Confusion: Hopefully will improve with improvement of electrolytes, which are being followed closely Disposition: After continued clinical improvement, I will return on Monday but the on-call physician is available over the weekend as needed Thank you kindly for this consultation, and please do not hesitate to call with any further questions. Past Medical History Cardiovascular: HTN GI: Constipation Heme/Onc: Other (BREAST CANCER) Psych: Anxiety Past Surgical History Past Surgical History: Mastectomy, Tonsillectomy, Hysterectomy Family History Family History: No Significant, Hypertension Social History ALCOHOL: none Drugs: None Lives: Roommate Current Problem List Problem List Problems Medical Problems: (1) Hyponatremia Status: Acute Current Medications Current Medications Current Medications Sodium Chloride 1,000 ml @ 1,000 mls/hr 1X ONCE IV Last administered on 01/18/19at 03:40; Start 01/18/19 at 03:30; Stop 01/18/19 at 04:29; Status DC Fentanyl Citrate (Fentanyl 2ml Vial) 50 mcg 1X ONCE IV Last administered on 01/18/19at 03:30; Start 01/18/19 at 03:30; Stop 01/18/19 at 03:31; Status DC Potassium Chloride (Klor-Con) 40 meq 1X ONCE PO Last administered on 01/18/19 04:18; Start 01/18/19 at 04:00; Stop 01/18/19 at 04:01; Status DC Ondansetron HCl (Zofran) 4 mg PRN Q8HRS PRN IV NAUSEA/VOMITING 1ST CHOICE; Start 01/18/19 at 04:00; Stop 01/19/19 at 03:59 Fentanyl Citrate (Fentanyl 2ml Vial) 25 mcg PRN Q2HRS PRN IV SEVERE PAIN 7-10; Start 01/18/19 at 04:00; Stop 01/18/19 at 04:03; Status DC Fentanyl Citrate (Fentanyl 2ml Vial) 50 mcg 1X ONCE IV Last administered on 01/18/19 04:18; Start 01/18/19 at 04:30; Stop 01/18/19 at 04:31; Status DC Fentanyl Citrate (Fentanyl 2ml Vial) 50 mcg PRN Q2HRS PRN IV SEVERE PAIN 7-10 Last administered on 01/18/19at 09:14; Start 01/18/19 at 04:15 Morphine Sulfate (Morphine Sulfate) 2 mg PRN Q2HR PRN IV MODERATE PAIN Last administered on 01/18/19at 16:59; Start 01/18/19 at 11:15 Sodium Chloride 1,000 ml @ 75 mls/hr [id number] IV Last administered on 01/18/19 11:42; Start 01/18/19 at 11:15 Potassium Chloride/Water 100 ml @ 100 mls/hr Q1H IV Last administered on 01/18/19at 15:50; Start 01/18/19 at 12:00; Stop 01/18/19 at 15:59; Status DC Acetaminophen (Tylenol) 1,000 mg TID PO Last administered on 01/18/19 14:44; Start 01/18/19 at 14:00 Aspirin (Ecotrin) 81 mg DAILY PO Last administered on 01/18/19 12:50; Start 01/18/19 at 13:00 Meloxicam (Mobic) 15 mg DAILY PO Last administered on 01/18/19at 12:50; Start 01/18/19 at 13:00 Memantine (Namenda) 10 mg BID PO ; Start 01/18/19 at 21:00 Citalopram Hydrobromide (CeleXA) 10 mg Q48H PO ; Start 01/19/19 at 09:00 Active Scripts Active Reported Escitalopram Oxalate 10 Mg Tablet 5 Mg PO QODAY Acetaminophen 500 Mg Tablet 2 Tab PO TID Namenda (Memantine Hcl) 10 Mg Tablet 1 Tab PO BID Meloxicam 7.5 Mg Tablet 2 Tab PO DAILY Aspir-Low (Aspirin) 81 Mg Tablet.dr 1 Tab PO DAILY Allergies Allergies: Coded Allergies: iodine (Verified Allergy, Intermediate, IV dye- hives, 05/15/18) Vitals VITALS Vital Signs Date Time Temp Pulse Resp B/P (MAP) Pulse Ox O2 Delivery O2 Flow Rate FiO2 01/18/19 16:59 17 Room Air 01/18/19 15:00 98.1 90 109/52 (71) 96 98.1 Labs Labs Laboratory Tests Test 01/18/19 02:50 01/18/19 03:56 01/18/19 06:30 01/18/19 09:45 White Blood Count 11.0 x10^3/uL (4.0-11.0) Red Blood Count 3.89 x10^6/uL (3.50-5.40) Hemoglobin 12.2 g/dL (12.0-15.5) Hematocrit 35.4 % (36.0-47.0) Mean Corpuscular Volume 91 fL (79-100) Mean Corpuscular Hemoglobin 32 pg (25-35) Mean Corpuscular Hemoglobin Concent 35 g/dL (31-37) Red Cell Distribution Width 12.9 % (11.5-14.5) Platelet Count 391 x10^3/uL (140-400) Neutrophils (%) (Auto) 82 % (31-73) Lymphocytes (%) (Auto) 8 % (24-48) Monocytes (%) (Auto) 10 % (0-9) Eosinophils (%) (Auto) 0 % (0-3) Basophils (%) (Auto) 0 % (0-3) Neutrophils # (Auto) 9.0 x10^3/uL (1.8-7.7) Lymphocytes # (Auto) 0.9 x10^3/uL (1.0-4.8) Monocytes # (Auto) 1.1 x10^3/uL (0.0-1.1) Eosinophils # (Auto) 0.0 x10^3/uL (0.0-0.7) Basophils # (Auto) 0.0 x10^3/uL (0.0-0.2) Prothrombin Time 12.1 SEC (11.7-14.0) Prothromb Time International Ratio 0.9 (0.8-1.1) Activated Partial Thromboplast Time 26 SEC (24-38) Sodium Level 118 mmol/L (136-145) Potassium Level 2.9 mmol/L (3.5-5.1) Chloride Level 81 mmol/L (98-107) Carbon Dioxide Level 27 mmol/L (21-32) Anion Gap 10 (6-14) Blood Urea Nitrogen 11 mg/dL (7-20) Creatinine 0.5 mg/dL (0.6-1.0) Estimated GFR (Cockcroft-Gault) 117.0 BUN/Creatinine Ratio 22 (6-20) Glucose Level 126 mg/dL (70-99) Calcium Level 9.7 mg/dL (8.5-10.1) Magnesium Level 1.9 mg/dL (1.8-2.4) Total Bilirubin 0.6 mg/dL (0.2-1.0) Aspartate Amino Transf (AST/SGOT) 24 U/L (15-37) Alanine Aminotransferase (ALT/SGPT) 18 U/L (14-59) Alkaline Phosphatase 130 U/L (46-116) Creatine Kinase 112 U/L (26-192) Creatine Kinase MB (Mass) 3.6 ng/mL (0.0-3.6) Creatine Kinase MB Relative Index 3.2 % (0-4) Troponin I Quantitative < 0.017 ng/mL (0.000-0.055) < 0.017 ng/mL (0.000-0.055) < 0.017 ng/mL (0.000-0.055) Total Protein 7.5 g/dL (6.4-8.2) Albumin 3.6 g/dL (3.4-5.0) Albumin/Globulin Ratio 0.9 (1.0-1.7) Urine Collection Type U cath Urine Color Yellow Urine Clarity Clear Urine pH 6.5 Urine Specific [place] 1.015 Urine Protein Negative mg/dL (NEG-TRACE) Urine Glucose (UA) Negative mg/dL (NEG) Urine Ketones (Stick) 40 mg/dL (NEG) Urine Blood Negative (NEG) Urine Nitrite Negative (NEG) Urine Bilirubin Negative (NEG) Urine Urobilinogen Dipstick 0.2 mg/dL (0.2 mg/dL) Urine Leukocyte Esterase Negative (NEG) Urine RBC 1-2 /HPF (0-2) Urine WBC Occ /HPF (0-4) Urine Squamous Epithelial Cells None /LPF Urine Bacteria 0 /HPF (0-FEW) Urine Hyaline Casts Few /HPF Urine Mucus Slight /LPF Urine Random Creatinine 33.5 mg/dL (Not Establ.) Test 01/18/19 14:50 Sodium Level 122 mmol/L (136-145) Laboratory Tests Test 01/18/19 02:50 01/18/19 03:56 01/18/19 06:30 01/18/19 09:45 White Blood Count 11.0 x10^3/uL (4.0-11.0) Red Blood Count 3.89 x10^6/uL (3.50-5.40) Hemoglobin 12.2 g/dL (12.0-15.5) Hematocrit 35.4 % (36.0-47.0) Mean Corpuscular Volume 91 fL (79-100) Mean Corpuscular Hemoglobin 32 pg (25-35) Mean Corpuscular Hemoglobin Concent 35 g/dL (31-37) Red Cell Distribution Width 12.9 % (11.5-14.5) Platelet Count 391 x10^3/uL (140-400) Neutrophils (%) (Auto) 82 % (31-73) Lymphocytes (%) (Auto) 8 % (24-48) Monocytes (%) (Auto) 10 % (0-9) Eosinophils (%) (Auto) 0 % (0-3) Basophils (%) (Auto) 0 % (0-3) Neutrophils # (Auto) 9.0 x10^3/uL (1.8-7.7) Lymphocytes # (Auto) 0.9 x10^3/uL (1.0-4.8) Monocytes # (Auto) 1.1 x10^3/uL (0.0-1.1) Eosinophils # (Auto) 0.0 x10^3/uL (0.0-0.7) Basophils # (Auto) 0.0 x10^3/uL (0.0-0.2) Prothrombin Time 12.1 SEC (11.7-14.0) Prothromb Time International Ratio 0.9 (0.8-1.1) Activated Partial Thromboplast Time 26 SEC (24-38) Sodium Level 118 mmol/L (136-145) Potassium Level 2.9 mmol/L (3.5-5.1) Chloride Level 81 mmol/L (98-107) Carbon Dioxide Level 27 mmol/L (21-32) Anion Gap 10 (6-14) Blood Urea Nitrogen 11 mg/dL (7-20) Creatinine 0.5 mg/dL (0.6-1.0) Estimated GFR (Cockcroft-Gault) 117.0 BUN/Creatinine Ratio 22 (6-20) Glucose Level 126 mg/dL (70-99) Calcium Level 9.7 mg/dL (8.5-10.1) Magnesium Level 1.9 mg/dL (1.8-2.4) Total Bilirubin 0.6 mg/dL (0.2-1.0) Aspartate Amino Transf (AST/SGOT) 24 U/L (15-37) Alanine Aminotransferase (ALT/SGPT) 18 U/L (14-59) Alkaline Phosphatase 130 U/L (46-116) Creatine Kinase 112 U/L (26-192) Creatine Kinase MB (Mass) 3.6 ng/mL (0.0-3.6) Creatine Kinase MB Relative Index 3.2 % (0-4) Troponin I Quantitative < 0.017 ng/mL (0.000-0.055) < 0.017 ng/mL (0.000-0.055) < 0.017 ng/mL (0.000-0.055) Total Protein 7.5 g/dL (6.4-8.2) Albumin 3.6 g/dL (3.4-5.0) Albumin/Globulin Ratio 0.9 (1.0-1.7) Urine Collection Type U cath Urine Color Yellow Urine Clarity Clear Urine pH 6.5 Urine Specific [place] 1.015 Urine Protein Negative mg/dL (NEG-TRACE) Urine Glucose (UA) Negative mg/dL (NEG) Urine Ketones (Stick) 40 mg/dL (NEG) Urine Blood Negative (NEG) Urine Nitrite Negative (NEG) Urine Bilirubin Negative (NEG) Urine Urobilinogen Dipstick 0.2 mg/dL (0.2 mg/dL) Urine Leukocyte Esterase Negative (NEG) Urine RBC 1-2 /HPF (0-2) Urine WBC Occ /HPF (0-4) Urine Squamous Epithelial Cells None /LPF Urine Bacteria 0 /HPF (0-FEW) Urine Hyaline Casts Few /HPF Urine Mucus Slight /LPF Urine Random Creatinine 33.5 mg/dL (Not Establ.) Test 01/18/19 14:50 Sodium Level 122 mmol/L (136-145) ERIKA STRAUSS MD Jan 18, 2019 17:57
[2019-01-18 19:00] VITALS: BP 102/54
[2019-01-18] MEDS: MEMANTINE 10 MG TABLET. PO SCH (21:50)
[2019-01-18 23:00] VITALS: BP 104/50
[2019-01-19] MEDS ORDERED: fentaNYL PF VIAL 100 MCG/2 ML VIAL IV PRN ×2 (00:15→11:00)
[2019-01-19] MEDS ORDERED: HYDROmorphone 2 MG/ML VIAL IV PRN (00:15)
[2019-01-19] MEDS ORDERED: IV RINGERS,LACTATED 1000ML 1,000 ML IV SCH (00:30)
[2019-01-19] MEDS: IV NORMAL SALINE 1000ML BAG 1,000 ML IV SCH ×2 (02:26→12:59)
[2019-01-19 03:00] VITALS: BP 119/57
[2019-01-19 07:00] VITALS: BP 120/57
[2019-01-19] MEDS: MORPHINE SULFATE 2 MG/ML VIAL. IV PRN ×4 (07:44→13:00)
[2019-01-19] MEDS ORDERED: fentaNYL PF VIAL 100 MCG/2 ML VIAL ONE (08:11)
[2019-01-19] MEDS ORDERED: LIDOCAINE 2% PF 5 ML VIAL. ONE (08:11)
[2019-01-19] MEDS ORDERED: PROPOFOL 20 ML IV ONE (08:11)
[2019-01-19] MEDS ORDERED: ONDANSETRON PF 4 MG/2 ML VIAL. ONE (08:11)
[2019-01-19] MEDS ORDERED: DEXAMETHASONE SOD PHOS 4 MG/ML VIAL ONE (08:11)
--- NOTE | 2019-01-19 08:26 | CONS ---
DATE OF CONSULTATION: 01/19/2019 REQUESTING PHYSICIAN: Dr. Donna Eldridge. REASON FOR CONSULTATION: Left hip fracture. HISTORY OF PRESENT ILLNESS: The patient is an 88-year-old female who fell while she was getting out of bed, attempting to go use the restroom. She did hit her head and also landed on her left hip and complained of severe left hip pain and difficulty ambulating. Due to her dementia, remainder of her history is filled in by her who is at her bedside and notes that she has a history of previous breast cancer and some dementia, anxiety and a history of recent falls and had a recent rehabilitation facility stay. She had previously ambulated independently with the use of a walker for the most part. PAST MEDICAL HISTORY: History of hysterectomy. PAST SURGICAL HISTORY: Tonsillectomy, right mastectomy. SOCIAL HISTORY: Lives at home with her . Denies smoking or drug use. Occasional alcohol consumption. ALLERGIES: IODINE. REVIEW OF SYSTEMS: Really not possible due to her mental status; however, she denies visual changes, headache, weakness and does complain of the hip pain with any motion and does not indicate any type of radiating pain from the hip. PHYSICAL EXAMINATION: GENERAL: Pleasant, conversational 88-year-old female, resting comfortably in bed. HEENT: She does have a couple of hematomas, one on the back of her head. NECK: No neck pain on palpation. EXTREMITIES: She is able to move her arms well with good shoulder, elbow, wrist motion. No tenderness on palpation or instability. Examination of lower extremities reveals a shortened internally rotated left lower extremity, normal alignment, stability of bilateral knees and ankles. Tenderness with any range of motion of the hip, which was minimized. She has normal examination contralateral hip, but again can wiggle her toes and feels sensation, has distal pulses present. IMAGING: X-rays show a displaced intertrochanteric fracture of the left hip. TREATMENT PLAN: I went over with the patient and her the immobility related concerns with nonoperative treatment, recommended operative treatment of fixation of her hip fracture and the possibility of limited weightbearing depending on how steady the fracture fixation is, but a hope of letting her get up and around as much as possible to minimize immobility related concerns. I did go over with them the possibility of infection, nerve or blood vessel damage, nonhealing, medical or other anesthetic complications associated with surgery among others. They agreed to proceed with operative evaluation and treatment, which ideally can occur today. She is undergoing treatment for hyponatremia and previous correction of her potassium levels at present. YFN MEJIA MD DR: HELENA/jonathan JOB#: [id number] / [id number]
[2019-01-19 08:34] LABS: BASO % 0 % (0-3); EOS % 0 % (0-3); HEMATOCRIT 26.5 % (36.0-47.0); HEMOGLOBIN 9.2 g/dL (12.0-15.5); LYMPH # 0.7 x10^3/uL (1.0-4.8); LYMPH % 7 % (24-48); MEAN CORPUSCULAR HEMOGLOBIN 32 pg (25-35); MEAN CORPUSCULAR HGB CONC 35 g/dL (31-37); MEAN CORPUSCULAR VOLUME 93 fL (79-100); MONO # 1.4 x10^3/uL (0.0-1.1); MONO % 13 % (0-9); NEUT # 8.3 x10^3/uL (1.8-7.7); NEUT % 80 % (31-73); PLATELET COUNT 319 x10^3/uL (140-400); RED BLOOD COUNT 2.86 x10^6/uL (3.50-5.40); RED CELL DISTRIBUTION WIDTH 13.2 % (11.5-14.5); WHITE BLOOD COUNT 10.4 x10^3/uL (4.0-11.0)
[2019-01-19 08:47] LABS: CALCIUM 8.6 mg/dL (8.5-10.1); CREATININE 0.5 mg/dL (0.6-1.0); POTASSIUM 4.1 mmol/L (3.5-5.1)
[2019-01-19 08:50] LABS: PHOSPHORUS 2.4 mg/dL (2.6-4.7)
[2019-01-19] MEDS: ASPIRIN ENTERIC COATED 81 MG TABLET.DR. PO SCH (09:00)
[2019-01-19] MEDS: MEMANTINE 10 MG TABLET. PO SCH ×2 (09:00→21:01)
[2019-01-19] MEDS: CITALOPRAM 10 MG TABLET. PO SCH (09:00)
[2019-01-19] MEDS: MELOXICAM 7.5 MG TABLET PO SCH (09:00)
[2019-01-19] MEDS: ACETAMINOPHEN 500 MG TABLET PO SCH ×3 (09:00→21:01)
--- NOTE | 2019-01-19 10:40 | NUR ---
Patient was transported to OR by this underwriter and [employer]. Transferred Care to [facility]
[2019-01-19] MEDS: ceFAZolin SODIUM IV Push 1 GM VIAL. IVP SCH ×2 (10:59→17:09)
[2019-01-19] MEDS ORDERED: DEXTROSE 50% 25 GM / 50ML DISP.SYRIN. IV PRN (11:00)
[2019-01-19] MEDS ORDERED: MORPHINE SULFATE 4 MG/ML VIAL. IV PRN (11:00)
[2019-01-19] MEDS: SENNOSIDES/DOCUSATE 8.6/50MG TABLET. PO SCH (11:00)
[2019-01-19] MEDS ORDERED: HYDROcodone/APAP 7.5/325MG 1 TAB TABLET PO PRN (11:00)
[2019-01-19] MEDS ORDERED: POLYETHYLENE GLYCOL 3350 17 GM PACKET. PO PRN (11:00)
[2019-01-19] MEDS ORDERED: IV DEXTROSE 5% 250 ML BAG. IV PRN (11:00)
[2019-01-19] MEDS ORDERED: MORPHINE SULFATE 2 MG/ML VIAL. IV PRN (11:00)
[2019-01-19] MEDS ORDERED: ONDANSETRON PF 4 MG/2 ML VIAL. IV PRN (11:00)
--- NOTE | 2019-01-19 11:17 | PDOC ---
Renal-Progress Notes Subjective Notes Notes NO NEW COMPLAINTS History of Present Illness Hx of present illness STABLE Vitals Vitals Vital Signs Date Time Temp Pulse Resp B/P (MAP) Pulse Ox O2 Delivery O2 Flow Rate FiO2 01/19/19 10:53 97.5 80 20 109/56 94 Room Air 97.5 Weight Weight [ ] I.O. Intake and Output Intake and Output 01/19/19 07:00 Intake Total 300 ml Output Total 2100 ml Balance -1800 ml Intake Oral 300 ml Output Urine Total 2100 ml Labs Labs Laboratory Tests Test 01/18/19 14:50 01/18/19 19:00 01/19/19 07:42 Sodium Level 122 mmol/L (136-145) 133 mmol/L (136-145) Potassium Level 4.7 mmol/L (3.5-5.1) 4.1 mmol/L (3.5-5.1) White Blood Count 10.4 x10^3/uL (4.0-11.0) Red Blood Count 2.86 x10^6/uL (3.50-5.40) Hemoglobin 9.2 g/dL (12.0-15.5) Hematocrit 26.5 % (36.0-47.0) Mean Corpuscular Volume 93 fL (79-100) Mean Corpuscular Hemoglobin 32 pg (25-35) Mean Corpuscular Hemoglobin Concent 35 g/dL (31-37) Red Cell Distribution Width 13.2 % (11.5-14.5) Platelet Count 319 x10^3/uL (140-400) Neutrophils (%) (Auto) 80 % (31-73) Lymphocytes (%) (Auto) 7 % (24-48) Monocytes (%) (Auto) 13 % (0-9) Eosinophils (%) (Auto) 0 % (0-3) Basophils (%) (Auto) 0 % (0-3) Neutrophils # (Auto) 8.3 x10^3/uL (1.8-7.7) Lymphocytes # (Auto) 0.7 x10^3/uL (1.0-4.8) Monocytes # (Auto) 1.4 x10^3/uL (0.0-1.1) Eosinophils # (Auto) 0.0 x10^3/uL (0.0-0.7) Basophils # (Auto) 0.0 x10^3/uL (0.0-0.2) Chloride Level 101 mmol/L (98-107) Carbon Dioxide Level 26 mmol/L (21-32) Anion Gap 6 (6-14) Blood Urea Nitrogen 7 mg/dL (7-20) Creatinine 0.5 mg/dL (0.6-1.0) Estimated GFR (Cockcroft-Gault) 117.0 Glucose Level 99 mg/dL (70-99) Calcium Level 8.6 mg/dL (8.5-10.1) Phosphorus Level 2.4 mg/dL (2.6-4.7) Magnesium Level 2.0 mg/dL (1.8-2.4) Assessment Assessment MP HYPOTENSION-IMPROVED SEVERE HYPONATREMIA-NEARLY RESOLVED SEVERE HYPOKALEMIA-RESOLVED MET ENCEPHALOPATHY LEFT HIP FRACTURE PLAN AM CORTISOL DONE BUT PROB WNL AVOID OROSCO-2 INHIBITORS CHECK URINE LYTES CORRECT K ISOTONIC SALINE WONT NEED 3% SALINE WILL FOLLOW NADYA MAHAJAN MD Jan 19, 2019 11:17
[2019-01-19] MEDS ORDERED: ePHEDrine PF IN SALINE 50 MG/10 ML SYRINGE. IV ONE (11:54)
[2019-01-19] MEDS ORDERED: PHENYLEPHRINE in 0.9% NACL PF 1 MG/10 ML SYRINGE. IV ONE (11:55)
[2019-01-19] MEDS ORDERED: MORPHINE SULFATE 2 MG/ML VIAL. ONE (12:45)
[2019-01-19] MEDS: PROCHLORPERAZINE 10 MG/2 ML VIAL. IV PRN ×2 (12:58→13:19)
[2019-01-19] MEDS: fentaNYL PF VIAL 100 MCG/2 ML VIAL IV PRN ×4 (12:59→13:33)
--- NOTE | 2019-01-19 13:18 | PDOC ---
[facility] PROGRESS NOTE Chief Complaint Chief Complaint Comminuted intertrochanteric proximal L femur fracture Acute hyponatremia Hx of breast CA w/ right mastectomy Hysterectomy Tonsillectomy History of Present Illness History of Present Illness 01/19/19 Pt seen and examined Chart reviewed Acute hyponatremia resolving (Na currently 133 today compared to 122 yesterday) ARASELI RN Vitals/I&O Vitals/I&O: Vital Signs Date Time Temp Pulse Resp B/P (MAP) Pulse Ox O2 Delivery O2 Flow Rate FiO2 01/19/19 13:00 20 Room Air 01/19/19 13:00 99 01/19/19 12:44 102 83/58 01/19/19 12:29 97.3 10 97.3 I & O 01/18/19 01/18/19 01/19/19 15:00 23:00 07:00 Intake Total 300 ml 0 ml Output Total 1350 ml 750 ml Balance -1050 ml -750 ml Physical Exam General: Alert, Cooperative, No acute distress Heart: Regular rate, No murmurs Lungs: Clear Abdomen: Normal bowel sounds, Soft, No tenderness Extremities: No clubbing, No cyanosis Skin: No rashes, No significant lesion Labs Labs: Laboratory Tests Test 01/18/19 14:50 01/18/19 19:00 01/19/19 07:42 Sodium Level 122 mmol/L (136-145) 133 mmol/L (136-145) Potassium Level 4.7 mmol/L (3.5-5.1) 4.1 mmol/L (3.5-5.1) White Blood Count 10.4 x10^3/uL (4.0-11.0) Red Blood Count 2.86 x10^6/uL (3.50-5.40) Hemoglobin 9.2 g/dL (12.0-15.5) Hematocrit 26.5 % (36.0-47.0) Mean Corpuscular Volume 93 fL (79-100) Mean Corpuscular Hemoglobin 32 pg (25-35) Mean Corpuscular Hemoglobin Concent 35 g/dL (31-37) Red Cell Distribution Width 13.2 % (11.5-14.5) Platelet Count 319 x10^3/uL (140-400) Neutrophils (%) (Auto) 80 % (31-73) Lymphocytes (%) (Auto) 7 % (24-48) Monocytes (%) (Auto) 13 % (0-9) Eosinophils (%) (Auto) 0 % (0-3) Basophils (%) (Auto) 0 % (0-3) Neutrophils # (Auto) 8.3 x10^3/uL (1.8-7.7) Lymphocytes # (Auto) 0.7 x10^3/uL (1.0-4.8) Monocytes # (Auto) 1.4 x10^3/uL (0.0-1.1) Eosinophils # (Auto) 0.0 x10^3/uL (0.0-0.7) Basophils # (Auto) 0.0 x10^3/uL (0.0-0.2) Chloride Level 101 mmol/L (98-107) Carbon Dioxide Level 26 mmol/L (21-32) Anion Gap 6 (6-14) Blood Urea Nitrogen 7 mg/dL (7-20) Creatinine 0.5 mg/dL (0.6-1.0) Estimated GFR (Cockcroft-Gault) 117.0 Glucose Level 99 mg/dL (70-99) Calcium Level 8.6 mg/dL (8.5-10.1) Phosphorus Level 2.4 mg/dL (2.6-4.7) Magnesium Level 2.0 mg/dL (1.8-2.4) Review of Systems Review of Systems: No headache No fever/chills Assessment and Plan Assessmemt and Plan Problems Medical Problems: (1) Hyponatremia Status: Acute Assessment: Comminuted intertrochanteric proximal L femur fracture Acute hyponatremia Hx of breast CA w/ right mastectomy Hysterectomy Tonsillectomy Plan: ORIF surgery scheduled for later today for L femur fracture Likely D/C to SNU this upcoming Monday DVT prophylaxis PT/OT Labs Home meds Comment Review of Relevant I have reviewed the following items mellisa (where applicable) has been applied. Medications: Current Medications Medications (Trade) Dose Ordered Sig/Colten Route PRN Reason Start Time Stop Time Status Last Admin Dose Admin Acetaminophen (Tylenol) 1,000 mg TID PO 01/18/19 14:00 01/18/19 21:56 Memantine (Namenda) 10 mg BID PO 01/18/19 21:00 01/18/19 21:56 Fentanyl Citrate (Fentanyl 2ml Vial) 25 mcg PRN Q5MIN PRN IV MILD PAIN 1-3 01/19/19 00:15 01/20/19 00:14 01/19/19 13:00 Morphine Sulfate (Morphine Sulfate) 1 mg PRN Q10MIN PRN IV SEVERE PAIN 7-10 01/19/19 00:15 01/20/19 00:14 01/19/19 13:00 Prochlorperazine Edisylate (Compazine) 5 mg PACU PRN PRN IV NAUSEA, MRX1 01/19/19 00:15 01/20/19 00:14 01/19/19 13:00 Cefazolin Sodium (Ancef) 1 gm Q6H IVP 01/19/19 11:00 01/19/19 23:01 01/19/19 11:59 JELANI JORDAN III DO Jan 19, 2019 13:18
--- NOTE | 2019-01-19 13:58 | PDOC4 ---
Operative Note Operative Note Date of surgery: 01/19/2019 Preoperative diagnosis: Displaced intertrochanteric left hip fracture Postoperative diagnosis: Same with some subtrochanteric extension Operative procedure: Operative reduction internal fixation left intertrochanteric subtrochanteric hip fracture with long InterTAN nail Surgeon: Chauncey Anesthesia: Gen. Estimated blood loss: 200 mL Complications: None Operative indications: Please see my orthopedic consultation for detailed operative indications Operative text: Patient was identified procedure verified patient placed in the supine position on the [place] fracture table after adequate amounts of general anesthesia were administered. Left leg was placed in traction right leg in the well-leg raygoza all bony prominences are well-padded and reduction was carried out under fluoroscopic guidance. She had quite a difficult reduction due to the large amount of displacement and I supplemented with some pressure underneath her femur with a crutch for support under the mid femur. The left hip and leg were then prepped and draped in standard sterile fashion and after timeout was performed patient she did identified and verified and incision was made proximal to the greater trochanteric starting point with the hip held in provisional reduction the awl was placed in a long guidewire was placed initial entry reamer was placed and reaming carried out up to a size 14. A size 11.5 x 32 cm length intramedullary nail 130� InterTAN nail by [employer] was inserted guidewire was advanced up the center of the femoral neck initial drilling an antirotation bar was placed drilling was then carried out for the lag screw and a total of about 10 mm compression was planned for with lag screw placement and compression screw showed excellent bite and compression for the fracture to be well stabilized distal locking screw was placed in the dynamic hole under fluoroscopic guidance and the positioning of hardware and fracture reduction was all checked under multiple fluoroscopic views. Thorough irrigation carried out normal saline solution fascia was closed with #1 Vicryl suture subcutaneous closure with layered Vicryl suture skin closure with sangeetha sterile dressings were applied patient was returned recovery room in stable condition having tolerated procedure well YFN MEJIA MD Jan 19, 2019 13:57
--- NOTE | 2019-01-19 14:59 | NUR ---
Patient returned to floor post-op and report received from ABHI Neely. Two incisions in Left Hip and Left Extremity, both covered with Xeroform, 4x4, and ABD. Vital signs B/P: 88/53, HR 96, O2 100% on 2LNC, RR16. Patient sleeping with family returning to bedside at this time. Will monitor patient per unit protocol.
[2019-01-19 15:00] VITALS: BP 88/51
[2019-01-19 15:10] LABS: SODIUM, URINE <60 mmol/L (Not Estab.); UR POTASSIUM 16.4 mmol/L (Not Estab.)
[2019-01-19] MEDS ORDERED: WARFARIN 5 MG TABLET. PO ONE (16:00)
[2019-01-19 19:02] VITALS: BP 100/50
[2019-01-19 23:58] VITALS: BP 96/46
[2019-01-20] VITALS (10 sets, daily range): BP systolic 92–115; BP diastolic 41–53
[2019-01-20] MEDS: ceFAZolin SODIUM IV Push 1 GM VIAL. IVP SCH (00:30)
[2019-01-20] MEDS: MORPHINE SULFATE 2 MG/ML VIAL. IV PRN ×3 (00:32→09:00)
[2019-01-20] MEDS ORDERED: MAGNESIUM HYDROXIDE 2,400 MG/30 ML ORAL.SUSP. PO PRN (06:00)
[2019-01-20] MEDS: IV NORMAL SALINE 1000ML BAG 1,000 ML IV SCH ×2 (06:22→21:01)
[2019-01-20 08:44] LABS: BASO % 0 % (0-3); EOS % 0 % (0-3); LYMPH # 1.2 x10^3/uL (1.0-4.8); LYMPH % 13 % (24-48); MEAN CORPUSCULAR HEMOGLOBIN 33 pg (25-35); MEAN CORPUSCULAR HGB CONC 35 g/dL (31-37); MEAN CORPUSCULAR VOLUME 93 fL (79-100); MONO # 1.4 x10^3/uL (0.0-1.1); MONO % 15 % (0-9); NEUT # 6.5 x10^3/uL (1.8-7.7); NEUT % 71 % (31-73); PLATELET COUNT 273 x10^3/uL (140-400); RED BLOOD COUNT 1.99 x10^6/uL (3.50-5.40); RED CELL DISTRIBUTION WIDTH 13.1 % (11.5-14.5); WHITE BLOOD COUNT 9.2 x10^3/uL (4.0-11.0)
[2019-01-20 08:49] LABS: HEMATOCRIT 18.6 % (36.0-47.0); HEMOGLOBIN 6.5 g/dL (12.0-15.5)
[2019-01-20] MEDS: ACETAMINOPHEN 500 MG TABLET PO SCH ×3 (09:01→21:01)
[2019-01-20] MEDS: ASPIRIN ENTERIC COATED 81 MG TABLET.DR. PO SCH (09:01)
[2019-01-20] MEDS: SENNOSIDES/DOCUSATE 8.6/50MG TABLET. PO SCH (09:01)
[2019-01-20] MEDS: MELOXICAM 7.5 MG TABLET PO SCH (09:02)
[2019-01-20] MEDS: MEMANTINE 10 MG TABLET. PO SCH ×2 (09:02→21:01)
[2019-01-20 09:03] LABS: CALCIUM 8.4 mg/dL (8.5-10.1); CREATININE 0.4 mg/dL (0.6-1.0); GFR 151.3; MAGNESIUM 1.9 mg/dL (1.8-2.4); PHOSPHORUS 2.6 mg/dL (2.6-4.7); POTASSIUM 4.1 mmol/L (3.5-5.1)
[2019-01-20] MEDS: oxyCODONE IR 5 MG TABLET PO PRN ×4 (10:53→23:29)
--- NOTE | 2019-01-20 12:11 | PDOC ---
Renal-Progress Notes Subjective Notes Notes NO NEW CHANGES History of Present Illness Hx of present illness STABLE Vitals Vitals Vital Signs Date Time Temp Pulse Resp B/P (MAP) Pulse Ox O2 Delivery O2 Flow Rate FiO2 01/20/19 12:02 98.3 86 16 112/52 98.3 01/20/19 11:00 92 Room Air 01/20/19 08:00 2.0 Weight Weight [ ] I.O. Intake and Output Intake and Output 01/20/19 07:00 Intake Total 2726.61 ml Output Total 950 ml Balance 1776.61 ml Intake Oral 725 ml IV Total 2001.61 ml Output Urine Total 950 ml Labs Labs Laboratory Tests Test 01/20/19 07:25 White Blood Count 9.2 x10^3/uL (4.0-11.0) Red Blood Count 1.99 x10^6/uL (3.50-5.40) Hemoglobin 6.5 g/dL (12.0-15.5) Hematocrit 18.6 % (36.0-47.0) Mean Corpuscular Volume 93 fL (79-100) Mean Corpuscular Hemoglobin 33 pg (25-35) Mean Corpuscular Hemoglobin Concent 35 g/dL (31-37) Red Cell Distribution Width 13.1 % (11.5-14.5) Platelet Count 273 x10^3/uL (140-400) Neutrophils (%) (Auto) 71 % (31-73) Lymphocytes (%) (Auto) 13 % (24-48) Monocytes (%) (Auto) 15 % (0-9) Eosinophils (%) (Auto) 0 % (0-3) Basophils (%) (Auto) 0 % (0-3) Neutrophils # (Auto) 6.5 x10^3/uL (1.8-7.7) Lymphocytes # (Auto) 1.2 x10^3/uL (1.0-4.8) Monocytes # (Auto) 1.4 x10^3/uL (0.0-1.1) Eosinophils # (Auto) 0.0 x10^3/uL (0.0-0.7) Basophils # (Auto) 0.0 x10^3/uL (0.0-0.2) Sodium Level 134 mmol/L (136-145) Potassium Level 4.1 mmol/L (3.5-5.1) Chloride Level 101 mmol/L (98-107) Carbon Dioxide Level 23 mmol/L (21-32) Anion Gap 10 (6-14) Blood Urea Nitrogen 8 mg/dL (7-20) Creatinine 0.4 mg/dL (0.6-1.0) Estimated GFR (Cockcroft-Gault) 151.3 Glucose Level 83 mg/dL (70-99) Calcium Level 8.4 mg/dL (8.5-10.1) Phosphorus Level 2.6 mg/dL (2.6-4.7) Magnesium Level 1.9 mg/dL (1.8-2.4) Assessment Assessment MP HYPOTENSION-RESOLVED SEVERE HYPONATREMIA-NEARLY RESOLVED SEVERE HYPOKALEMIA-RESOLVED MET ENCEPHALOPATHY LEFT HIP FRACTURE-S/P SURGERY ANEMIA PLAN AVOID OROSCO-2 INHIBITORS ISOTONIC SALINE WILL FOLLOW NADYA MAHAJAN MD Jan 20, 2019 12:11
--- NOTE | 2019-01-20 13:17 | PDOC ---
[facility] PROGRESS NOTE Chief Complaint Chief Complaint Comminuted intertrochanteric proximal L femur fracture ORIF of above left hip fracture with long INTERTAN nail Acute hyponatremia Hx of breast CA w/ right mastectomy Hysterectomy Tonsillectomy History of Present Illness History of Present Illness 01/20/19 Pt seen and examined (well appearing and in no acute distress) Chart reviewed Post-op Hg dropped to 6.5 (compared to 9.2 pre-op; Dr. Argueta has already placed orders for PRBC) Na+ remains stable (134 today compared to 133 yesterday); acute hyponatremia appears resolved ARASELI RN 01/19/19 Pt seen and examined Chart reviewed Acute hyponatremia resolving (Na currently 133 today compared to 122 yesterday) ARASELI RN Vitals/I&O Vitals/I&O: Vital Signs Date Time Temp Pulse Resp B/P (MAP) Pulse Ox O2 Delivery O2 Flow Rate FiO2 01/20/19 12:30 Nasal Cannula 01/20/19 12:02 98.3 86 16 112/52 98.3 01/20/19 11:00 92 01/20/19 08:00 2.0 I & O 01/19/19 01/19/19 01/20/19 15:00 23:00 07:00 Intake Total 1300 ml 1426.61 ml Output Total 300 ml 300 ml 350 ml Balance 1000 ml -300 ml 1076.61 ml Physical Exam General: Alert, Cooperative, No acute distress Heart: Regular rate, No murmurs Lungs: Clear Abdomen: Normal bowel sounds, Soft, No tenderness Extremities: No clubbing, No cyanosis Skin: No rashes, No significant lesion Labs Labs: Laboratory Tests Test 01/20/19 07:25 White Blood Count 9.2 x10^3/uL (4.0-11.0) Red Blood Count 1.99 x10^6/uL (3.50-5.40) Hemoglobin 6.5 g/dL (12.0-15.5) Hematocrit 18.6 % (36.0-47.0) Mean Corpuscular Volume 93 fL (79-100) Mean Corpuscular Hemoglobin 33 pg (25-35) Mean Corpuscular Hemoglobin Concent 35 g/dL (31-37) Red Cell Distribution Width 13.1 % (11.5-14.5) Platelet Count 273 x10^3/uL (140-400) Neutrophils (%) (Auto) 71 % (31-73) Lymphocytes (%) (Auto) 13 % (24-48) Monocytes (%) (Auto) 15 % (0-9) Eosinophils (%) (Auto) 0 % (0-3) Basophils (%) (Auto) 0 % (0-3) Neutrophils # (Auto) 6.5 x10^3/uL (1.8-7.7) Lymphocytes # (Auto) 1.2 x10^3/uL (1.0-4.8) Monocytes # (Auto) 1.4 x10^3/uL (0.0-1.1) Eosinophils # (Auto) 0.0 x10^3/uL (0.0-0.7) Basophils # (Auto) 0.0 x10^3/uL (0.0-0.2) Sodium Level 134 mmol/L (136-145) Potassium Level 4.1 mmol/L (3.5-5.1) Chloride Level 101 mmol/L (98-107) Carbon Dioxide Level 23 mmol/L (21-32) Anion Gap 10 (6-14) Blood Urea Nitrogen 8 mg/dL (7-20) Creatinine 0.4 mg/dL (0.6-1.0) Estimated GFR (Cockcroft-Gault) 151.3 Glucose Level 83 mg/dL (70-99) Calcium Level 8.4 mg/dL (8.5-10.1) Phosphorus Level 2.6 mg/dL (2.6-4.7) Magnesium Level 1.9 mg/dL (1.8-2.4) Review of Systems Review of Systems: No headache No fever/chills Assessment and Plan Assessmemt and Plan Problems Medical Problems: (1) Hyponatremia Status: Acute Assessment: Comminuted intertrochanteric proximal L femur fracture ORIF of above left hip fracture with long INTERTAN nail Acute hyponatremia Hx of breast CA w/ right mastectomy Hysterectomy Tonsillectomy Plan: Wound care Trend Hg SNU eval in progress DVT prophylaxis PT/OT Labs Home meds Comment Review of Relevant I have reviewed the following items mellisa (where applicable) has been applied. JELANI JORDAN III, DO Jan 20, 2019 13:16
--- NOTE | 2019-01-20 14:50 | NUR ---
Pharmacy Warfarin Dosing Note S:Pharmacy consulted to assist with anticoagulation therapy started 01/19/19 with target INR: 1.6 - 2.5 O:VICKIE LAU is a 88 year old F with Hip Fracture LABS: Last INR: 0.9 16 Last HGB: 6.5 Last HCT: 18.6 Last PLT: 273 Last dose of 5 mg given on 01/19/19 at 1600 Previous Regimen: Vitamin K given: Drug Interaction Changes: Ongoing Drug Interactions: A:INR of 0.9 01/18 is below desired range. Target range for this patient is: 1.6 - 2.5 P: Warfarin dose: 3 mg Today at 1600 Bridge Therapy: None Next INR due TOMORROW. Pharmacy anticoagulation service will continue to follow. DAKOTA CLAIRE [facility], 01/20/19 [id number]
[2019-01-20] MEDS ORDERED: BISACODYL 10 MG SUPP.RECT. PR PRN (16:00)
[2019-01-20] MEDS ORDERED: WARFARIN 3 MG TABLET. PO ONE (16:00)
[2019-01-20 17:46] LABS: HEMOGLOBIN 8.9 g/dL (12.0-15.5)
[2019-01-21 03:04] VITALS: BP 145/69
[2019-01-21] MEDS: IV NORMAL SALINE 1000ML BAG 1,000 ML IV SCH ×2 (05:55→19:30)
[2019-01-21 06:07] LABS: BASO # 0.1 x10^3/uL (0.0-0.2); BASO % 1 % (0-3); EOS # 0.2 x10^3/uL (0.0-0.7); EOS % 2 % (0-3); HEMATOCRIT 26.1 % (36.0-47.0); LYMPH % 10 % (24-48); MEAN CORPUSCULAR HEMOGLOBIN 32 pg (25-35); MEAN CORPUSCULAR HGB CONC 35 g/dL (31-37); MEAN CORPUSCULAR VOLUME 91 fL (79-100); MONO # 1.3 x10^3/uL (0.0-1.1); MONO % 13 % (0-9); NEUT # 7.9 x10^3/uL (1.8-7.7); NEUT % 75 % (31-73); PLATELET COUNT 279 x10^3/uL (140-400); RED BLOOD COUNT 2.86 x10^6/uL (3.50-5.40); RED CELL DISTRIBUTION WIDTH 13.6 % (11.5-14.5); WHITE BLOOD COUNT 10.4 x10^3/uL (4.0-11.0)
[2019-01-21 06:21] LABS: CALCIUM 8.3 mg/dL (8.5-10.1); CREATININE 0.4 mg/dL (0.6-1.0); GFR 151.3; POTASSIUM 3.6 mmol/L (3.5-5.1)
[2019-01-21 06:57] LABS: PROTHROMBIN TIME PATIENT 13.1 SEC (11.7-14.0)
[2019-01-21 07:00] VITALS: BP 117/63
[2019-01-21] MEDS: MELOXICAM 7.5 MG TABLET PO SCH (08:05)
[2019-01-21] MEDS: ACETAMINOPHEN 500 MG TABLET PO SCH ×3 (08:05→19:58)
--- NOTE | 2019-01-21 09:32 | PDOC ---
SUBJECTIVE Subjective S: Doing quite well, in good spirits, surgery went well O: Physical exam: Gen.: An elderly female, thin, resting in bed Lungs: Breathing comfortably w/o respiratory distress Extremities: No signif edema, L hip bandaged Skin: Warm and dry Psychiatric: Pleasant mood and affect Labs: Hemoglobin 6.5 postop up to 9.0 after 1 unit, sodium 132, potassium 3.6 Assessment and Plan: She is an 88-year-old female with a fall sustaining a left hip fracture, s/p ORIF on Jan, with history of breast cancer and DVT and PE postoperatively in the past, with hyponatremia and hypokalemia Hyponatremia and hypokalemia: Deferred to primary, improving 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 OBJECTIVE Vital Signs Vital Signs Date Time Temp Pulse Resp B/P (MAP) Pulse Ox O2 Delivery O2 Flow Rate FiO2 01/21/19 07:00 99.6 102 18 117/63 (81) 92 Room Air 99.6 01/21/19 03:04 99.0 95 16 145/69 (94) 95 Room Air 99.0 01/21/19 00:40 Room Air 01/20/19 23:58 98.1 76 16 115/53 (73) 96 Room Air 98.1 01/20/19 23:30 Room Air 01/20/19 20:00 Room Air 01/20/19 19:02 98.0 86 16 92/41 (58) 96 Room Air 98.0 01/20/19 18:36 Room Air 01/20/19 17:25 Room Air 01/20/19 15:36 Room Air 01/20/19 15:00 98.0 65 12 100/47 (64) 96 Room Air 98.0 01/20/19 14:04 Room Air 01/20/19 13:14 98.0 87 16 95/45 98.0 01/20/19 12:30 Nasal Cannula 01/20/19 12:02 98.3 86 16 112/52 98.3 01/20/19 11:02 97.9 78 16 92/45 97.9 01/20/19 11:00 98.9 85 16 92/48 (63) 92 Room Air 98.9 01/20/19 10:53 Nasal Cannula 01/20/19 10:47 98.4 87 16 97/46 98.4 01/20/19 10:09 Nasal Cannula I & O Intake and Output 01/21/19 06:59 Intake Total 2380 ml Output Total 3075 ml Balance -695 ml Intake Oral 1680 ml Blood Product IV Normal Saline Flush 700 ml Output Urine Total 3075 ml COMMENT Lab Laboratory Tests Test 01/20/19 17:35 01/21/19 05:45 Hemoglobin 8.9 g/dL (12.0-15.5) 9.0 g/dL (12.0-15.5) Hematocrit 26.0 % (36.0-47.0) 26.1 % (36.0-47.0) Mean Corpuscular Hemoglobin Concent 34 g/dL (31-37) 35 g/dL (31-37) White Blood Count 10.4 x10^3/uL (4.0-11.0) Red Blood Count 2.86 x10^6/uL (3.50-5.40) Mean Corpuscular Volume 91 fL (79-100) Mean Corpuscular Hemoglobin 32 pg (25-35) Red Cell Distribution Width 13.6 % (11.5-14.5) Platelet Count 279 x10^3/uL (140-400) Neutrophils (%) (Auto) 75 % (31-73) Lymphocytes (%) (Auto) 10 % (24-48) Monocytes (%) (Auto) 13 % (0-9) Eosinophils (%) (Auto) 2 % (0-3) Basophils (%) (Auto) 1 % (0-3) Neutrophils # (Auto) 7.9 x10^3/uL (1.8-7.7) Lymphocytes # (Auto) 1.0 x10^3/uL (1.0-4.8) Monocytes # (Auto) 1.3 x10^3/uL (0.0-1.1) Eosinophils # (Auto) 0.2 x10^3/uL (0.0-0.7) Basophils # (Auto) 0.1 x10^3/uL (0.0-0.2) Prothrombin Time 13.1 SEC (11.7-14.0) Prothromb Time International Ratio 1.0 (0.8-1.1) Sodium Level 132 mmol/L (136-145) Potassium Level 3.6 mmol/L (3.5-5.1) Chloride Level 99 mmol/L (98-107) Carbon Dioxide Level 28 mmol/L (21-32) Anion Gap 5 (6-14) Blood Urea Nitrogen 4 mg/dL (7-20) Creatinine 0.4 mg/dL (0.6-1.0) Estimated GFR (Cockcroft-Gault) 151.3 Glucose Level 106 mg/dL (70-99) Calcium Level 8.3 mg/dL (8.5-10.1) ERIKA BLAS MD Jan 21, 2019 09:32
[2019-01-21] MEDS: SENNOSIDES/DOCUSATE 8.6/50MG TABLET. PO SCH (09:48)
[2019-01-21] MEDS: CITALOPRAM 10 MG TABLET. PO SCH (09:48)
[2019-01-21] MEDS: ASPIRIN ENTERIC COATED 81 MG TABLET.DR. PO SCH (09:48)
[2019-01-21] MEDS: MEMANTINE 10 MG TABLET. PO SCH ×2 (09:48→19:58)
--- NOTE | 2019-01-21 10:41 | PDOC ---
SUBJECTIVE ROS Sitting up in chair, family at bedside, No complaints OBJECTIVE Vital Signs Vital Signs Date Time Temp Pulse Resp B/P (MAP) Pulse Ox O2 Delivery O2 Flow Rate FiO2 01/21/19 07:00 99.6 102 18 117/63 (81) 92 Room Air 99.6 01/20/19 08:00 2.0 I & 0 Intake and Output 01/21/19 07:00 Intake Total 2380 ml Output Total 3075 ml Balance -695 ml Intake Oral 1680 ml Blood Product IV Normal Saline Flush 700 ml Output Urine Total 3075 ml PHYSICAL EXAM Physical Exam GENERAL: No apparent distress HEENT: OM moist NECK: Supple LUNGS: Clear to auscultation HEART: RRR, ABDOMEN: Soft, nontender. EXTREMITIES: No edema NEUROLOGIC: Grossly normal SKIN: No rash Bennett + DIAGNOSIS/ASSESSMENT Assessment & Plan Severe Hyponatremia - Na 118 at presentation ,Improved Nearly resolved , Good UOP Avoid NSAID's/Sosa 2 Inhibitors Hypotension - Resolved Severe Hypo K - at presentation Resolved Left Hip Fracture - s/p Surgery Anemia - stable Dw Pt and family at bedside COMMENT/RELEVANT DATA Meds Current Medications Medications (Trade) Dose Ordered Sig/Colten Start Time Stop Time Status Last Admin Dose Admin Acetaminophen (Tylenol) 1,000 mg TID 01/18/19 14:00 01/21/19 08:10 1,000 MG Acetaminophen/ Hydrocodone Bitart (Lortab 7.5/325) 2 tab PRN Q4HRS PRN 01/19/19 11:00 Aspirin (Ecotrin) 81 mg DAILY 01/18/19 13:00 01/21/19 09:55 81 MG Bisacodyl (Dulcolax Supp) 10 mg 1X PRN PRN 01/20/19 16:00 01/21/19 15:59 Cefazolin Sodium 50 ml @ As Directed STK-MED ONCE 01/19/19 10:57 01/19/19 10:57 DC Cefazolin Sodium (Ancef) 1 gm Q6H 01/19/19 11:00 01/19/19 23:01 DC 01/20/19 00:32 1 GM Citalopram Hydrobromide (CeleXA) 10 mg Q48H 01/19/19 09:00 01/21/19 09:55 10 MG Dexamethasone Sodium Phosphate (Decadron) 4 mg STK-MED ONCE 01/19/19 08:11 01/19/19 08:12 DC Dextrose 250 ml PRN Q15MIN PRN 01/19/19 11:00 Dextrose (Dextrose 50%-Water Syringe) 12.5 gm PRN Q15MIN PRN 01/19/19 11:00 Ephedrine Sulfate (ePHEDrine PF IN SALINE SYRINGE) 50 mg STK-MED ONCE 01/19/19 11:54 01/19/19 11:55 DC Fentanyl Citrate (Fentanyl 2ml Vial) 25 mcg PRN Q1HR PRN 01/19/19 11:00 Hydromorphone HCl (Dilaudid) 0.5 mg PRN Q10MIN PRN 01/19/19 00:15 01/20/19 00:14 DC Lidocaine HCl (Lidocaine Pf 2% Vial) 5 ml STK-MED ONCE 01/19/19 08:11 01/19/19 08:12 DC Magnesium Hydroxide (Milk Of Magnesia) 2,400 mg 1X PRN PRN 01/20/19 06:00 01/21/19 05:59 DC Meloxicam (Mobic) 15 mg DAILY 01/18/19 13:00 01/21/19 08:10 15 MG Memantine (Namenda) 10 mg BID 01/18/19 21:00 01/21/19 09:55 10 MG Morphine Sulfate (Morphine Sulfate) 2 mg STK-MED ONCE 01/19/19 12:45 01/19/19 12:45 DC Ondansetron HCl (Zofran) 4 mg PRN Q4HRS PRN 01/19/19 11:00 Oxycodone HCl (Roxicodone) 5 mg PRN Q3HRS PRN 01/19/19 11:00 01/20/19 23:30 5 MG Phenylephrine HCl (PHENYLEPHRINE in 0.9% NACL PF) 1 mg STK-MED ONCE 01/19/19 11:55 01/19/19 11:55 DC Polyethylene Glycol (miraLAX PACKET) 17 gm PRN DAILY PRN 01/19/19 11:00 Potassium Chloride/Water 100 ml @ 100 mls/hr Q1H 01/18/19 12:00 01/18/19 15:59 DC 01/18/19 15:50 100 MLS/HR Potassium Chloride (Klor-Con) 40 meq 1X ONCE 01/18/19 04:00 01/18/19 04:01 DC 01/18/19 04:18 40 MEQ Prochlorperazine Edisylate (Compazine) 5 mg PACU PRN PRN 01/19/19 00:15 01/20/19 00:14 DC 01/19/19 13:19 5 MG Propofol 20 ml @ As Directed STK-MED ONCE 01/19/19 08:11 01/19/19 08:12 DC Ringer's Solution 1,000 ml @ 30 mls/hr Q24H 01/19/19 00:30 01/19/19 00:31 DC Senna/Docusate Sodium (Senna Plus) 1 tab DAILY 01/19/19 11:00 01/21/19 09:55 1 TAB Sodium Chloride 1,000 ml @ 75 mls/hr [id number] 01/18/19 11:15 01/20/19 21:01 75 MLS/HR Warfarin Sodium (Coumadin Per Pharmacy) 1 each PRN DAILY PRN 01/19/19 16:00 01/20/19 14:48 1 EACH Warfarin Sodium (Coumadin) 3 mg 1X WARF ONCE 01/20/19 16:00 01/20/19 16:01 DC 01/20/19 16:07 3 MG Lab Laboratory Tests Test 01/20/19 17:35 01/21/19 05:45 Hemoglobin 8.9 g/dL (12.0-15.5) 9.0 g/dL (12.0-15.5) Hematocrit 26.0 % (36.0-47.0) 26.1 % (36.0-47.0) Mean Corpuscular Hemoglobin Concent 34 g/dL (31-37) 35 g/dL (31-37) White Blood Count 10.4 x10^3/uL (4.0-11.0) Red Blood Count 2.86 x10^6/uL (3.50-5.40) Mean Corpuscular Volume 91 fL (79-100) Mean Corpuscular Hemoglobin 32 pg (25-35) Red Cell Distribution Width 13.6 % (11.5-14.5) Platelet Count 279 x10^3/uL (140-400) Neutrophils (%) (Auto) 75 % (31-73) Lymphocytes (%) (Auto) 10 % (24-48) Monocytes (%) (Auto) 13 % (0-9) Eosinophils (%) (Auto) 2 % (0-3) Basophils (%) (Auto) 1 % (0-3) Neutrophils # (Auto) 7.9 x10^3/uL (1.8-7.7) Lymphocytes # (Auto) 1.0 x10^3/uL (1.0-4.8) Monocytes # (Auto) 1.3 x10^3/uL (0.0-1.1) Eosinophils # (Auto) 0.2 x10^3/uL (0.0-0.7) Basophils # (Auto) 0.1 x10^3/uL (0.0-0.2) Prothrombin Time 13.1 SEC (11.7-14.0) Prothromb Time International Ratio 1.0 (0.8-1.1) Sodium Level 132 mmol/L (136-145) Potassium Level 3.6 mmol/L (3.5-5.1) Chloride Level 99 mmol/L (98-107) Carbon Dioxide Level 28 mmol/L (21-32) Anion Gap 5 (6-14) Blood Urea Nitrogen 4 mg/dL (7-20) Creatinine 0.4 mg/dL (0.6-1.0) Estimated GFR (Cockcroft-Gault) 151.3 Glucose Level 106 mg/dL (70-99) Calcium Level 8.3 mg/dL (8.5-10.1) Results All relevant outside records, renal labs, imaging studies, telemetry/EKG's were reviewed. RADHA RYAN MD Jan 21, 2019 10:40
[2019-01-21 11:01] VITALS: BP 90/52
[2019-01-21 11:14] LABS: URINE OSMOLALITY 237 mOsmol/kg (.)
--- NOTE | 2019-01-21 11:49 | NUR ---
SS following up with discharge planning. PT/OT recommending [facility] at discharge. Pt is currently on room air. SS met with pt and pt's son, Paul, , and discussed discharge planning and [facility]. Pt and pt's son reported that they would like referral to [facility], ; fax [phone], due to previous experience. SS phoned and faxed referral to [facility]. SS will await acceptance decision and will proceed accordingly.
[2019-01-21] MEDS: HYDROcodone/APAP 7.5/325MG 1 TAB TABLET PO PRN (11:59)
--- NOTE | 2019-01-21 13:12 | PDOC ---
[employer] PROGRESS NOTE Chief Complaint Chief Complaint Comminuted intertrochanteric proximal L femur fracture ORIF of above left hip fracture with long INTERTAN nail Acute hyponatremia Hx of breast CA w/ right mastectomy Hysterectomy Tonsillectomy History of Present Illness History of Present Illness 01/21/19 Patient seen and examined Discussed with RN and case management 01/20/19 Pt seen and examined (well appearing and in no acute distress) Chart reviewed Post-op Hg dropped to 6.5 (compared to 9.2 pre-op; Dr. Argueta has already placed orders for PRBC) Na+ remains stable (134 today compared to 133 yesterday); acute hyponatremia appears resolved DW RN 01/19/19 Pt seen and examined Chart reviewed Acute hyponatremia resolving (Na currently 133 today compared to 122 yesterday) ARASELI RN Vitals/I&O Vitals/I&O: Vital Signs Date Time Temp Pulse Resp B/P (MAP) Pulse Ox O2 Delivery O2 Flow Rate FiO2 01/21/19 11:59 19 93 Room Air 01/21/19 11:01 98.4 102 90/52 (65) 98.4 01/20/19 08:00 2.0 I & O 01/20/19 01/20/19 01/21/19 14:59 22:59 06:59 Intake Total 1180 ml 500 ml 700 ml Output Total 1275 ml 1800 ml Balance 1180 ml -775 ml -1100 ml Physical Exam General: Alert, Cooperative, No acute distress Heart: Regular rate, No murmurs Lungs: Clear Abdomen: Normal bowel sounds, Soft, No tenderness Extremities: No clubbing, No cyanosis Skin: No rashes, No significant lesion Labs Labs: Laboratory Tests Test 01/20/19 17:35 01/21/19 05:45 Hemoglobin 8.9 g/dL (12.0-15.5) 9.0 g/dL (12.0-15.5) Hematocrit 26.0 % (36.0-47.0) 26.1 % (36.0-47.0) Mean Corpuscular Hemoglobin Concent 34 g/dL (31-37) 35 g/dL (31-37) White Blood Count 10.4 x10^3/uL (4.0-11.0) Red Blood Count 2.86 x10^6/uL (3.50-5.40) Mean Corpuscular Volume 91 fL (79-100) Mean Corpuscular Hemoglobin 32 pg (25-35) Red Cell Distribution Width 13.6 % (11.5-14.5) Platelet Count 279 x10^3/uL (140-400) Neutrophils (%) (Auto) 75 % (31-73) Lymphocytes (%) (Auto) 10 % (24-48) Monocytes (%) (Auto) 13 % (0-9) Eosinophils (%) (Auto) 2 % (0-3) Basophils (%) (Auto) 1 % (0-3) Neutrophils # (Auto) 7.9 x10^3/uL (1.8-7.7) Lymphocytes # (Auto) 1.0 x10^3/uL (1.0-4.8) Monocytes # (Auto) 1.3 x10^3/uL (0.0-1.1) Eosinophils # (Auto) 0.2 x10^3/uL (0.0-0.7) Basophils # (Auto) 0.1 x10^3/uL (0.0-0.2) Prothrombin Time 13.1 SEC (11.7-14.0) Prothromb Time International Ratio 1.0 (0.8-1.1) Sodium Level 132 mmol/L (136-145) Potassium Level 3.6 mmol/L (3.5-5.1) Chloride Level 99 mmol/L (98-107) Carbon Dioxide Level 28 mmol/L (21-32) Anion Gap 5 (6-14) Blood Urea Nitrogen 4 mg/dL (7-20) Creatinine 0.4 mg/dL (0.6-1.0) Estimated GFR (Cockcroft-Gault) 151.3 Glucose Level 106 mg/dL (70-99) Calcium Level 8.3 mg/dL (8.5-10.1) Review of Systems Review of Systems: co hunger co fatigue Assessment and Plan Assessmemt and Plan Problems Medical Problems: (1) Anemia Status: Chronic (2) Fall Status: Acute (3) Hip fracture Status: Acute (4) Hyponatremia Status: Acute (5) Intertrochanteric fracture Status: Acute (6) Metabolic encephalopathy Status: Acute Assessment: Comminuted intertrochanteric proximal L femur fracture ORIF of above left hip fracture with long INTERTAN nail Acute hyponatremia Hx of breast CA w/ right mastectomy Hysterectomy Tonsillectomy Plan: Wound care Trend Hg SNU eval in progress DVT prophylaxis PT/OT Labs Home meds Discharge to SNU if bed available Comment Review of Relevant I have reviewed the following items mellisa (where applicable) has been applied. Medications: Current Medications Medications (Trade) Dose Ordered Sig/Colten Route PRN Reason Start Time Stop Time Status Last Admin Dose Admin Warfarin Sodium (Coumadin) 3 mg 1X WARF ONCE PO 01/20/19 16:00 01/20/19 16:01 DC 01/20/19 16:07 JELANI JORDAN III DO Jan 21, 2019 13:12
--- NOTE | 2019-01-21 13:30 | SNU/HH DC ---
DISCHARGE ORDERS DISCHARGE INFORMATION: FINAL DIAGNOSIS Problems Medical Problems: (1) Anemia Status: Chronic (2) Fall Status: Acute (3) Hip fracture Status: Acute (4) Hyponatremia Status: Acute (5) Intertrochanteric fracture Status: Acute (6) Metabolic encephalopathy Status: Acute CONDITION ON DISCHARGE: Stable CODE STATUS: Code Status: Full SENIOR CARE: SNF STAY <30 DAYS: Yes HOSPICE: HOSPICE: No HOSPICE EVAL & TREAT: No LTAC: ADMIT TO LTAC: No POST DISCHARGE ORDERS: ACTIVITY ORDERS: Activity as tolerated WEIGHT BEARING STATUS: As tolerated DIET AFTER DISCHARGE: Cardiac WOUND/INCISION CARE: Keep wound/cast CDI TREATMENT/EQUIPMENT ORDERS: ADAPTIVE EQUIPMENT NEEDED: None Physical Therapy For: Evalulation/Treatment Occupational Therapy For: Evaluation/Treatment DISCHARGE MEDICATIONS: Home Meds Reported Medications Escitalopram Oxalate (ESCITALOPRAM OXALATE) 10 Mg Tablet, 5 MG PO QODAY for ANTI-DEPRESSANT, #30 TAB 0 Refills 01/18/19 Acetaminophen (ACETAMINOPHEN) 500 Mg Tablet, 2 TAB PO TID for Pain, #60 TAB 1 Refill 01/18/19 Memantine Hcl (NAMENDA) 10 Mg Tablet, 1 TAB PO BID for Dementia, #180 TAB 1 Refill 01/18/19 Meloxicam (MELOXICAM) 7.5 Mg Tablet, 2 TAB PO DAILY for pain, #30 TAB 2 Refills 05/15/18 Aspirin (ASPIR-LOW) 81 Mg Tablet.dr, 1 TAB PO DAILY for prevention, #30 TAB 3 Refills 05/15/18 JELANI JORDAN III DO Jan 21, 2019 13:30
--- NOTE | 2019-01-21 14:28 | NUR ---
Pharmacy Warfarin Dosing Note S: Pharmacy consulted to assist with anticoagulation therapy started 01/19/19 O: VICKIE LAU is a 88 year old F with a Hip Fracture LABS: Last INR: 1.0 Last HGB: 9 Last HCT: 26.1 Last PLT: 279 Last dose of 3 mg given on 01/20/19 at 1607 A:INR of 1.0 is below desired range. Target range for this patient is: 1.6 - 2.5. P: Warfarin dose: 4 mg Today at 1600 Bridge Therapy: None Next INR due 01/22/19 Pharmacy anticoagulation service will continue to follow. JILLIAN FERREIRA [facility], 01/21/19 [id number]
[2019-01-21 15:00] VITALS: BP 108/57
[2019-01-21] MEDS ORDERED: WARFARIN 4 MG TABLET. PO ONE (16:00)
--- NOTE | 2019-01-21 17:45 | NUR ---
PUREWICK PLACED ON PATIENT AT THIS TIME, PATIENT HAS HAD URINARY FREQUENCY SINCE POP CATH REMOVED THIS SHIFT.
[2019-01-21 19:00] VITALS: BP 143/71
[2019-01-21] MEDS: oxyCODONE IR 5 MG TABLET PO PRN (19:58)
[2019-01-21 23:00] VITALS: BP 118/60
[2019-01-22 03:00] VITALS: BP 154/87
[2019-01-22 07:00] VITALS: BP 128/74
[2019-01-22 08:09] LABS: BASO # 0.1 x10^3/uL (0.0-0.2); BASO % 1 % (0-3); EOS # 0.2 x10^3/uL (0.0-0.7); EOS % 1 % (0-3); HEMOGLOBIN 8.7 g/dL (12.0-15.5); LYMPH # 0.9 x10^3/uL (1.0-4.8); LYMPH % 8 % (24-48); MEAN CORPUSCULAR HEMOGLOBIN 32 pg (25-35); MEAN CORPUSCULAR HGB CONC 35 g/dL (31-37); MEAN CORPUSCULAR VOLUME 91 fL (79-100); MONO # 1.4 x10^3/uL (0.0-1.1); MONO % 13 % (0-9); NEUT # 8.4 x10^3/uL (1.8-7.7); NEUT % 77 % (31-73); PLATELET COUNT 300 x10^3/uL (140-400); RED BLOOD COUNT 2.74 x10^6/uL (3.50-5.40); RED CELL DISTRIBUTION WIDTH 14.1 % (11.5-14.5); WHITE BLOOD COUNT 10.9 x10^3/uL (4.0-11.0)
[2019-01-22 08:21] LABS: PROTHROMBIN TIME PATIENT 16.9 SEC (11.7-14.0)
[2019-01-22 08:30] LABS: CALCIUM 8.5 mg/dL (8.5-10.1); CREATININE 0.4 mg/dL (0.6-1.0); GFR 151.3; POTASSIUM 3.3 mmol/L (3.5-5.1)
[2019-01-22] MEDS: SENNOSIDES/DOCUSATE 8.6/50MG TABLET. PO SCH (09:27)
[2019-01-22] MEDS: MEMANTINE 10 MG TABLET. PO SCH ×2 (09:27→20:38)
[2019-01-22] MEDS: ACETAMINOPHEN 500 MG TABLET PO SCH ×3 (09:27→20:39)
[2019-01-22] MEDS: ASPIRIN ENTERIC COATED 81 MG TABLET.DR. PO SCH (09:27)
[2019-01-22] MEDS: oxyCODONE IR 5 MG TABLET PO PRN ×2 (09:27→20:38)
[2019-01-22] MEDS: MELOXICAM 7.5 MG TABLET PO SCH (09:27)
--- NOTE | 2019-01-22 09:34 | PDOC ---
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 OBJECTIVE Vital Signs Vital Signs Date Time Temp Pulse Resp B/P (MAP) Pulse Ox O2 Delivery O2 Flow Rate FiO2 01/22/19 07:00 97.7 98 18 128/74 (92) 92 Room Air 97.7 01/22/19 03:00 99.9 100 18 154/87 (109) 94 99.9 01/21/19 23:00 98.3 94 16 118/60 (79) 95 Room Air 98.3 01/21/19 21:40 15 95 Room Air 01/21/19 20:00 Room Air 01/21/19 19:59 15 95 Room Air 01/21/19 19:00 99.1 101 17 143/71 (95) 95 Room Air 99.1 01/21/19 17:28 19 94 Room Air 01/21/19 15:00 98.4 86 18 108/57 (74) 93 Room Air 98.4 01/21/19 11:59 19 93 Room Air 01/21/19 11:01 98.4 102 18 90/52 (65) 93 Room Air 98.4 I & O Intake and Output 01/22/19 06:59 Intake Total 800 ml Output Total 1500 ml Balance -700 ml Intake Oral 800 ml Output Urine Total 1500 ml # Voids 1 COMMENT Lab Laboratory Tests Test 01/22/19 07:40 White Blood Count 10.9 x10^3/uL (4.0-11.0) Red Blood Count 2.74 x10^6/uL (3.50-5.40) Hemoglobin 8.7 g/dL (12.0-15.5) Hematocrit 25.0 % (36.0-47.0) Mean Corpuscular Volume 91 fL (79-100) Mean Corpuscular Hemoglobin 32 pg (25-35) Mean Corpuscular Hemoglobin Concent 35 g/dL (31-37) Red Cell Distribution Width 14.1 % (11.5-14.5) Platelet Count 300 x10^3/uL (140-400) Neutrophils (%) (Auto) 77 % (31-73) Lymphocytes (%) (Auto) 8 % (24-48) Monocytes (%) (Auto) 13 % (0-9) Eosinophils (%) (Auto) 1 % (0-3) Basophils (%) (Auto) 1 % (0-3) Neutrophils # (Auto) 8.4 x10^3/uL (1.8-7.7) Lymphocytes # (Auto) 0.9 x10^3/uL (1.0-4.8) Monocytes # (Auto) 1.4 x10^3/uL (0.0-1.1) Eosinophils # (Auto) 0.2 x10^3/uL (0.0-0.7) Basophils # (Auto) 0.1 x10^3/uL (0.0-0.2) Prothrombin Time 16.9 SEC (11.7-14.0) Prothromb Time International Ratio 1.4 (0.8-1.1) Sodium Level 134 mmol/L (136-145) Potassium Level 3.3 mmol/L (3.5-5.1) Chloride Level 97 mmol/L (98-107) Carbon Dioxide Level 29 mmol/L (21-32) Anion Gap 8 (6-14) Blood Urea Nitrogen 4 mg/dL (7-20) Creatinine 0.4 mg/dL (0.6-1.0) Estimated GFR (Cockcroft-Gault) 151.3 Glucose Level 102 mg/dL (70-99) Calcium Level 8.5 mg/dL (8.5-10.1) ERIKA BLAS MD Jan 22, 2019 09:34
--- NOTE | 2019-01-22 10:04 | PDOC ---
[employer] PROGRESS NOTE Chief Complaint Chief Complaint Comminuted intertrochanteric proximal L femur fracture ORIF of above left hip fracture with long INTERTAN nail Acute hyponatremia Hx of breast CA w/ right mastectomy Hysterectomy Tonsillectomy History of Present Illness History of Present Illness 01/22/19 - Post Op day 2 Patient seen and examined lying in bed, awake Family was present Discussed discharge with RN and case management 01/21/19 Patient seen and examined Discussed with RN and case management 01/20/19 Pt seen and examined (well appearing and in no acute distress) Chart reviewed Post-op Hg dropped to 6.5 (compared to 9.2 pre-op; Dr. Argueta has already placed orders for PRBC) Na+ remains stable (134 today compared to 133 yesterday); acute hyponatremia appears resolved DW RN 01/19/19 Pt seen and examined Chart reviewed Acute hyponatremia resolving (Na currently 133 today compared to 122 yesterday) DW RN Vitals/I&O Vitals/I&O: Vital Signs Date Time Temp Pulse Resp B/P (MAP) Pulse Ox O2 Delivery O2 Flow Rate FiO2 01/22/19 09:33 19 94 Room Air 01/22/19 07:00 97.7 98 128/74 (92) 97.7 I & O 01/21/19 01/21/19 01/22/19 15:00 23:00 07:00 Intake Total 500 ml 300 ml Output Total 600 ml 900 ml Balance -100 ml 300 ml -900 ml Physical Exam General: Alert, Cooperative, No acute distress Heart: Regular rate, No murmurs Lungs: Clear Abdomen: Normal bowel sounds, Soft, No tenderness Extremities: No clubbing, No cyanosis Skin: No rashes, No significant lesion Labs Labs: Laboratory Tests Test 01/22/19 07:40 White Blood Count 10.9 x10^3/uL (4.0-11.0) Red Blood Count 2.74 x10^6/uL (3.50-5.40) Hemoglobin 8.7 g/dL (12.0-15.5) Hematocrit 25.0 % (36.0-47.0) Mean Corpuscular Volume 91 fL (79-100) Mean Corpuscular Hemoglobin 32 pg (25-35) Mean Corpuscular Hemoglobin Concent 35 g/dL (31-37) Red Cell Distribution Width 14.1 % (11.5-14.5) Platelet Count 300 x10^3/uL (140-400) Neutrophils (%) (Auto) 77 % (31-73) Lymphocytes (%) (Auto) 8 % (24-48) Monocytes (%) (Auto) 13 % (0-9) Eosinophils (%) (Auto) 1 % (0-3) Basophils (%) (Auto) 1 % (0-3) Neutrophils # (Auto) 8.4 x10^3/uL (1.8-7.7) Lymphocytes # (Auto) 0.9 x10^3/uL (1.0-4.8) Monocytes # (Auto) 1.4 x10^3/uL (0.0-1.1) Eosinophils # (Auto) 0.2 x10^3/uL (0.0-0.7) Basophils # (Auto) 0.1 x10^3/uL (0.0-0.2) Prothrombin Time 16.9 SEC (11.7-14.0) Prothromb Time International Ratio 1.4 (0.8-1.1) Sodium Level 134 mmol/L (136-145) Potassium Level 3.3 mmol/L (3.5-5.1) Chloride Level 97 mmol/L (98-107) Carbon Dioxide Level 29 mmol/L (21-32) Anion Gap 8 (6-14) Blood Urea Nitrogen 4 mg/dL (7-20) Creatinine 0.4 mg/dL (0.6-1.0) Estimated GFR (Cockcroft-Gault) 151.3 Glucose Level 102 mg/dL (70-99) Calcium Level 8.5 mg/dL (8.5-10.1) Review of Systems Review of Systems: no co acute pain no co SOB Assessment and Plan Assessmemt and Plan Problems Medical Problems: (1) Anemia Status: Chronic (2) Fall Status: Acute (3) Hip fracture Status: Acute (4) Hyponatremia Status: Acute (5) Intertrochanteric fracture Status: Acute (6) Metabolic encephalopathy Status: Acute Assessment: Comminuted intertrochanteric proximal L femur fracture ORIF of above left hip fracture with long INTERTAN nail Acute hyponatremia Hx of breast CA w/ right mastectomy Hysterectomy Tonsillectomy Plan: Continue Wound care PT/OT Trend Hg DVT prophylaxis Trend Labs Continue Home meds Discharge to SNU if bed available Comment Review of Relevant I have reviewed the following items mellisa (where applicable) has been applied. Medications: Current Medications Medications (Trade) Dose Ordered Sig/Colten Route PRN Reason Start Time Stop Time Status Last Admin Dose Admin Warfarin Sodium (Coumadin) 4 mg 1X WARF ONCE PO 01/21/19 16:00 01/21/19 16:01 DC 01/21/19 17:27 JELANI JORDAN III DO Jan 22, 2019 10:04
--- NOTE | 2019-01-22 10:40 | PDOC ---
SUBJECTIVE ROS No complaints, PT at bedside OBJECTIVE Vital Signs Vital Signs Date Time Temp Pulse Resp B/P (MAP) Pulse Ox O2 Delivery O2 Flow Rate FiO2 01/22/19 09:33 19 94 Room Air 01/22/19 07:00 97.7 98 128/74 (92) 97.7 I & 0 Intake and Output 01/22/19 06:59 Intake Total 800 ml Output Total 1500 ml Balance -700 ml Intake Oral 800 ml Output Urine Total 1500 ml # Voids 1 PHYSICAL EXAM Physical Exam GENERAL: No apparent distress HEENT: OM moist NECK: Supple LUNGS: Clear to auscultation HEART: RRR, ABDOMEN: Soft, nontender. EXTREMITIES: No edema NEUROLOGIC: Grossly normal SKIN: No rash Ebnnett removed DIAGNOSIS/ASSESSMENT Assessment & Plan Severe Hyponatremia - Na 118 at presentation ,Improved to 134 Good UOP ,Avoid NSAID's/Sosa 2 Inhibitors Hypotension - Resolved Severe Hypo K - at presentation Resolved Left Hip Fracture - s/p ORIF on Jan Hx of breast cancer and DVT and PE postoperatively in the past Hem/Onc following Anemia - stable Dw Pt and family at bedside Will sign off COMMENT/RELEVANT DATA Meds Current Medications Medications (Trade) Dose Ordered Sig/Colten Start Time Stop Time Status Last Admin Dose Admin Acetaminophen (Tylenol) 1,000 mg TID 01/18/19 14:00 01/22/19 09:33 1,000 MG Acetaminophen/ Hydrocodone Bitart (Lortab 7.5/325) 2 tab PRN Q4HRS PRN 01/19/19 11:00 Aspirin (Ecotrin) 81 mg DAILY 01/18/19 13:00 01/22/19 09:33 81 MG Bisacodyl (Dulcolax Supp) 10 mg 1X PRN PRN 01/20/19 16:00 01/21/19 15:59 DC Cefazolin Sodium 50 ml @ As Directed STK-MED ONCE 01/19/19 10:57 01/19/19 10:57 DC Cefazolin Sodium (Ancef) 1 gm Q6H 01/19/19 11:00 01/19/19 23:01 DC 01/20/19 00:32 1 GM Citalopram Hydrobromide (CeleXA) 10 mg Q48H 01/19/19 09:00 01/21/19 09:55 10 MG Dexamethasone Sodium Phosphate (Decadron) 4 mg STK-MED ONCE 01/19/19 08:11 01/19/19 08:12 DC Dextrose 250 ml PRN Q15MIN PRN 01/19/19 11:00 Dextrose (Dextrose 50%-Water Syringe) 12.5 gm PRN Q15MIN PRN 01/19/19 11:00 Ephedrine Sulfate (ePHEDrine PF IN SALINE SYRINGE) 50 mg STK-MED ONCE 01/19/19 11:54 01/19/19 11:55 DC Fentanyl Citrate (Fentanyl 2ml Vial) 25 mcg PRN Q1HR PRN 01/19/19 11:00 Hydromorphone HCl (Dilaudid) 0.5 mg PRN Q10MIN PRN 01/19/19 00:15 01/20/19 00:14 DC Lidocaine HCl (Lidocaine Pf 2% Vial) 5 ml STK-MED ONCE 01/19/19 08:11 01/19/19 08:12 DC Magnesium Hydroxide (Milk Of Magnesia) 2,400 mg 1X PRN PRN 01/20/19 06:00 01/21/19 05:59 DC Meloxicam (Mobic) 15 mg DAILY 01/18/19 13:00 01/22/19 09:33 15 MG Memantine (Namenda) 10 mg BID 01/18/19 21:00 01/22/19 09:33 10 MG Morphine Sulfate (Morphine Sulfate) 2 mg STK-MED ONCE 01/19/19 12:45 01/19/19 12:45 DC Ondansetron HCl (Zofran) 4 mg PRN Q4HRS PRN 01/19/19 11:00 Oxycodone HCl (Roxicodone) 5 mg PRN Q3HRS PRN 01/19/19 11:00 01/22/19 09:33 5 MG Phenylephrine HCl (PHENYLEPHRINE in 0.9% NACL PF) 1 mg STK-MED ONCE 01/19/19 11:55 01/19/19 11:55 DC Polyethylene Glycol (miraLAX PACKET) 17 gm PRN DAILY PRN 01/19/19 11:00 Potassium Chloride/Water 100 ml @ 100 mls/hr Q1H 01/18/19 12:00 01/18/19 15:59 DC 01/18/19 15:50 100 MLS/HR Potassium Chloride (Klor-Con) 40 meq 1X ONCE 01/18/19 04:00 01/18/19 04:01 DC 01/18/19 04:18 40 MEQ Prochlorperazine Edisylate (Compazine) 5 mg PACU PRN PRN 01/19/19 00:15 01/20/19 00:14 DC 01/19/19 13:19 5 MG Propofol 20 ml @ As Directed STK-MED ONCE 01/19/19 08:11 01/19/19 08:12 DC Ringer's Solution 1,000 ml @ 30 mls/hr Q24H 01/19/19 00:30 01/19/19 00:31 DC Senna/Docusate Sodium (Senna Plus) 1 tab DAILY 01/19/19 11:00 01/22/19 09:33 1 TAB Sodium Chloride 1,000 ml @ 75 mls/hr [id number] 01/18/19 11:15 01/21/19 19:31 75 MLS/HR Warfarin Sodium (Coumadin Per Pharmacy) 1 each PRN DAILY PRN 01/19/19 16:00 01/21/19 14:28 1 EACH Warfarin Sodium (Coumadin) 4 mg 1X WARF ONCE 01/21/19 16:00 01/21/19 16:01 DC 01/21/19 17:27 4 MG Lab Laboratory Tests Test 01/22/19 07:40 White Blood Count 10.9 x10^3/uL (4.0-11.0) Red Blood Count 2.74 x10^6/uL (3.50-5.40) Hemoglobin 8.7 g/dL (12.0-15.5) Hematocrit 25.0 % (36.0-47.0) Mean Corpuscular Volume 91 fL (79-100) Mean Corpuscular Hemoglobin 32 pg (25-35) Mean Corpuscular Hemoglobin Concent 35 g/dL (31-37) Red Cell Distribution Width 14.1 % (11.5-14.5) Platelet Count 300 x10^3/uL (140-400) Neutrophils (%) (Auto) 77 % (31-73) Lymphocytes (%) (Auto) 8 % (24-48) Monocytes (%) (Auto) 13 % (0-9) Eosinophils (%) (Auto) 1 % (0-3) Basophils (%) (Auto) 1 % (0-3) Neutrophils # (Auto) 8.4 x10^3/uL (1.8-7.7) Lymphocytes # (Auto) 0.9 x10^3/uL (1.0-4.8) Monocytes # (Auto) 1.4 x10^3/uL (0.0-1.1) Eosinophils # (Auto) 0.2 x10^3/uL (0.0-0.7) Basophils # (Auto) 0.1 x10^3/uL (0.0-0.2) Prothrombin Time 16.9 SEC (11.7-14.0) Prothromb Time International Ratio 1.4 (0.8-1.1) Sodium Level 134 mmol/L (136-145) Potassium Level 3.3 mmol/L (3.5-5.1) Chloride Level 97 mmol/L (98-107) Carbon Dioxide Level 29 mmol/L (21-32) Anion Gap 8 (6-14) Blood Urea Nitrogen 4 mg/dL (7-20) Creatinine 0.4 mg/dL (0.6-1.0) Estimated GFR (Cockcroft-Gault) 151.3 Glucose Level 102 mg/dL (70-99) Calcium Level 8.5 mg/dL (8.5-10.1) Results All relevant outside records, renal labs, imaging studies, telemetry/EKG's were reviewed. RADHA RYAN MD Jan 22, 2019 10:40
[2019-01-22 10:53] VITALS: BP 124/72
--- NOTE | 2019-01-22 12:26 | NUR ---
Pharmacy Warfarin Dosing Note S:Pharmacy consulted to assist with anticoagulation therapy started 01/19/19 with target INR: 1.6 - 2.5 O:VICKIE LAU is a 88 year old F with Hip Fracture LABS: Last INR: 1.4 Last HGB: 9 Last HCT: 26.1 Last PLT: 279 Last dose of 4 mg given on 01/21/19 at 1727 Previous Regimen: Vitamin K given: Drug Interaction Changes: Ongoing Drug Interactions: A:INR of 1.4 is below desired range. Target range for this patient is: 1.6 - 2.5 P: Warfarin dose: 4 mg Today at 1600. Bridge Therapy: None Next INR due tomorrow. Pharmacy anticoagulation service will continue to follow. Gianluca Santos [facility], 01/22/19 [id number]
--- NOTE | 2019-01-22 13:00 | NUR ---
SW following pt. [facility] declined to take pt stating they can not meet her needs. Discussed with Pt's daughter in room about other options. Pt's daughter agreeable with an eval at [facility]. Referral faxed and pt acceptance admission pending. Discussed with RN.
[2019-01-22] MEDS: HYDROcodone/APAP 7.5/325MG 1 TAB TABLET PO PRN (13:18)
[2019-01-22 15:00] VITALS: BP 129/78
[2019-01-22] MEDS ORDERED: WARFARIN 4 MG TABLET. PO ONE (16:00)
--- NOTE | 2019-01-22 16:11 | NUR ---
Pt accepted at [facility] and facility will have a bed available upon dc. Discussed with pt's and daughter.
[2019-01-22 19:00] VITALS: BP 122/63
[2019-01-22] MEDS: IV NORMAL SALINE 1000ML BAG 1,000 ML IV SCH ×2 (22:00→22:01)
[2019-01-22 23:00] VITALS: BP 137/71
[2019-01-23 02:57] VITALS: BP 134/73
[2019-01-23] MEDS: oxyCODONE IR 5 MG TABLET PO PRN ×2 (04:31→14:39)
[2019-01-23 07:00] VITALS: BP 134/68
[2019-01-23] MEDS: SENNOSIDES/DOCUSATE 8.6/50MG TABLET. PO SCH (08:19)
[2019-01-23] MEDS: ACETAMINOPHEN 500 MG TABLET PO SCH ×2 (08:20→14:39)
[2019-01-23] MEDS: MEMANTINE 10 MG TABLET. PO SCH (08:20)
[2019-01-23] MEDS: CITALOPRAM 10 MG TABLET. PO SCH (08:20)
[2019-01-23] MEDS: ASPIRIN ENTERIC COATED 81 MG TABLET.DR. PO SCH (08:20)
[2019-01-23] MEDS: MELOXICAM 7.5 MG TABLET PO SCH (08:21)
[2019-01-23 08:32] LABS: BASO % 0 % (0-3); EOS # 0.3 x10^3/uL (0.0-0.7); EOS % 3 % (0-3); HEMATOCRIT 24.4 % (36.0-47.0); HEMOGLOBIN 8.5 g/dL (12.0-15.5); LYMPH # 1.2 x10^3/uL (1.0-4.8); LYMPH % 12 % (24-48); MEAN CORPUSCULAR HEMOGLOBIN 32 pg (25-35); MEAN CORPUSCULAR HGB CONC 35 g/dL (31-37); MEAN CORPUSCULAR VOLUME 92 fL (79-100); MONO % 11 % (0-9); NEUT # 7.3 x10^3/uL (1.8-7.7); NEUT % 74 % (31-73); PLATELET COUNT 360 x10^3/uL (140-400); RED BLOOD COUNT 2.67 x10^6/uL (3.50-5.40); RED CELL DISTRIBUTION WIDTH 14.1 % (11.5-14.5); WHITE BLOOD COUNT 9.9 x10^3/uL (4.0-11.0)
[2019-01-23 08:47] LABS: CALCIUM 8.5 mg/dL (8.5-10.1); CREATININE 0.4 mg/dL (0.6-1.0); GFR 151.3; POTASSIUM 3.1 mmol/L (3.5-5.1)
[2019-01-23 10:00] LABS: % BANDS 2 % (0-9); % EOS 3 % (0-5); % LYMPHS 13 % (24-48); % MONOS 10 % (0-10); % SEGS 72 % (35-66); PLT ESTIMATE ADEQUATE (ADEQUATE)
[2019-01-23 11:00] VITALS: BP 131/61
[2019-01-23] MEDS: IV NORMAL SALINE 1000ML BAG 1,000 ML IV SCH (11:15)
--- NOTE | 2019-01-23 12:25 | NUR ---
Pharmacy Warfarin Dosing Note S:Pharmacy consulted to assist with anticoagulation therapy started 01/19/19 with target INR: 1.6 - 2.5 O:VICKIE LAU is a 88 year old F with Hip Fracture LABS: Last INR: 1.8 Last HGB: 8.5 Last HCT: 24.4 Last PLT: 360 Last dose of 4 mg given on 01/22/19 at 1802 Previous Regimen: Vitamin K given: Drug Interaction Changes: Ongoing Drug Interactions: A:INR of 1.8 is within desired range. Target range for this patient is: 1.6 - 2.5 P: Warfarin dose: 4 mg Today at 1600. Bridge Therapy: None Next INR due tomorrow. Pharmacy anticoagulation service will continue to follow. Gianluca Santos [facility], 01/23/19 [id number]
[2019-01-23] MEDS: HYDROcodone/APAP 7.5/325MG 1 TAB TABLET PO PRN (12:37)
--- NOTE | 2019-01-23 13:26 | PDOC ---
[employer] PROGRESS NOTE Chief Complaint Chief Complaint Comminuted intertrochanteric proximal L femur fracture ORIF of above left hip fracture with long INTERTAN nail Acute hyponatremia Hx of breast CA w/ right mastectomy Hysterectomy Tonsillectomy History of Present Illness History of Present Illness 01/23/19 Patient seen/examined and resting comfortably Chart reviewed DW RN and case management, patient will be going to [facility] 01/22/19 - Post Op day 2 Patient seen and examined lying in bed, awake Family was present Discussed discharge with RN and case management 01/21/19 Patient seen and examined Discussed with RN and case management 01/20/19 Pt seen and examined (well appearing and in no acute distress) Chart reviewed Post-op Hg dropped to 6.5 (compared to 9.2 pre-op; Dr. Argueta has already placed orders for PRBC) Na+ remains stable (134 today compared to 133 yesterday); acute hyponatremia appears resolved DW RN 01/19/19 Pt seen and examined Chart reviewed Acute hyponatremia resolving (Na currently 133 today compared to 122 yesterday) ARASELI RN Vitals/I&O Vitals/I&O: Vital Signs Date Time Temp Pulse Resp B/P (MAP) Pulse Ox O2 Delivery O2 Flow Rate FiO2 01/23/19 12:37 Room Air 01/23/19 11:00 98.4 89 16 131/61 (84) 96 98.4 I & O 01/22/19 01/22/19 01/23/19 15:00 23:00 07:00 Intake Total 400 ml 300 ml Output Total 1100 ml Balance 400 ml 300 ml -1100 ml Physical Exam General: Alert, Cooperative, No acute distress Heart: Regular rate, No murmurs Lungs: Clear Abdomen: Normal bowel sounds, Soft, No tenderness Extremities: No clubbing, No cyanosis Skin: No rashes, No significant lesion Labs Labs: Laboratory Tests Test 01/23/19 07:10 01/23/19 07:40 01/23/19 07:45 White Blood Count 9.9 x10^3/uL (4.0-11.0) Red Blood Count 2.67 x10^6/uL (3.50-5.40) Hemoglobin 8.5 g/dL (12.0-15.5) Hematocrit 24.4 % (36.0-47.0) Mean Corpuscular Volume 92 fL (79-100) Mean Corpuscular Hemoglobin 32 pg (25-35) Mean Corpuscular Hemoglobin Concent 35 g/dL (31-37) Red Cell Distribution Width 14.1 % (11.5-14.5) Platelet Count 360 x10^3/uL (140-400) Neutrophils (%) (Auto) 74 % (31-73) Lymphocytes (%) (Auto) 12 % (24-48) Monocytes (%) (Auto) 11 % (0-9) Eosinophils (%) (Auto) 3 % (0-3) Basophils (%) (Auto) 0 % (0-3) Neutrophils # (Auto) 7.3 x10^3/uL (1.8-7.7) Lymphocytes # (Auto) 1.2 x10^3/uL (1.0-4.8) Monocytes # (Auto) 1.0 x10^3/uL (0.0-1.1) Eosinophils # (Auto) 0.3 x10^3/uL (0.0-0.7) Basophils # (Auto) 0.0 x10^3/uL (0.0-0.2) Segmented Neutrophils % 72 % (35-66) Band Neutrophils % 2 % (0-9) Lymphocytes % 13 % (24-48) Monocytes % 10 % (0-10) Eosinophils % 3 % (0-5) Platelet Estimate Adequate (ADEQUATE) Sodium Level 138 mmol/L (136-145) Potassium Level 3.1 mmol/L (3.5-5.1) Chloride Level 101 mmol/L (98-107) Carbon Dioxide Level 30 mmol/L (21-32) Anion Gap 7 (6-14) Blood Urea Nitrogen 5 mg/dL (7-20) Creatinine 0.4 mg/dL (0.6-1.0) Estimated GFR (Cockcroft-Gault) 151.3 Glucose Level 86 mg/dL (70-99) Calcium Level 8.5 mg/dL (8.5-10.1) Prothrombin Time 21.0 SEC (11.7-14.0) Prothromb Time International Ratio 1.8 (0.8-1.1) Review of Systems Review of Systems: co leg pain no co SOB Assessment and Plan Assessmemt and Plan Problems Medical Problems: (1) Anemia Status: Chronic (2) Fall Status: Acute (3) Hip fracture Status: Acute (4) Hyponatremia Status: Acute (5) Intertrochanteric fracture Status: Acute (6) Metabolic encephalopathy Status: Acute Assessment: Comminuted intertrochanteric proximal L femur fracture ORIF of above left hip fracture with long INTERTAN nail Acute hyponatremia Hx of breast CA w/ right mastectomy Hysterectomy Tonsillectomy Plan: Continue Wound care PT/OT Trend Hgb DVT prophylaxis Continue Home meds Discharge to [facility] today Comment Review of Relevant I have reviewed the following items mellisa (where applicable) has been applied. Medications: Current Medications Medications (Trade) Dose Ordered Sig/Colten Route PRN Reason Start Time Stop Time Status Last Admin Dose Admin Warfarin Sodium (Coumadin) 4 mg 1X WARF ONCE PO 01/22/19 16:00 01/22/19 16:01 DC 01/22/19 18:02 JELANI JORDAN III DO Jan 23, 2019 13:26
--- NOTE | 2019-01-23 13:43 | NUR ---
SW following pt. Orders faxed to [facility] and pt will transport via [facility] between [id number]. Pt's son Paul, notified of plan and agreeable.
[2019-01-23 15:00] VITALS: BP 109/53
[2019-01-23] MEDS ORDERED: WARFARIN 4 MG TABLET. PO ONE (16:00)
--- NOTE | 2019-01-23 16:45 | NUR ---
pt discharged to [facility]. report given to Candis. labs, meds, history, follow up reviewed. iv removed, cath intact. pt stable upon dc
--- NOTE | 2019-01-24 00:25 | DS ---
DATE OF DISCHARGE: 01/23/2019 ADMISSION DIAGNOSIS: Fall with hip fracture. DISCHARGE DIAGNOSES: Resolving fall with postop day #3, open reduction internal fixation and garrison placement of the left hip. HOSPITAL COURSE: The patient is a pleasant 88-year-old female who fell and suffered a hip fracture. She was admitted. We will consult Orthopedics. She was taken to the OR for ORIF and she now has a large garrison in her left femur. Clinically, I saw her this morning, she is doing well. Heart tones are normal. Lungs are clear. Her memory is off, but that is baseline for her. We plan to discharge to [facility]. DISPOSITION: [facility]. ACTIVITY: As tolerated. DIET: Low sodium. MEDICATIONS: Please see the MRAD. TOTAL TIME: 31 minutes. JELANI JORDAN DO DR: ROLAN/jonathan JOB#: [id number] / [id number]
== END 2019-01-23 16:45 | DRG 480 ==
LOC: ER 02:32 → 6 SOUTH 03:45 → 5 SOUTH 01-21 06:52
PROVIDERS: ADMIT Internal Medicine; ATTEND Internal Medicine
PROC: 0QS736Z Reposition Left Upper Femur with Intramedullary Internal Fixation Device, Percutaneous Approach (ICD-10-PCS; principal; 2019-01-19 08:00)
PROC: 30233N1 Transfusion of Nonautologous Red Blood Cells into Peripheral Vein, Percutaneous Approach (ICD-10-PCS; 2019-01-20)
DX: S72.142A Displaced intertrochanteric fracture of left femur, initial encounter for closed fracture (principal); G93.41 Metabolic encephalopathy; E87.1 Hypo-osmolality and hyponatremia; E87.6 Hypokalemia; S72.22XA Displaced subtrochanteric fracture of left femur, initial encounter for closed fracture; I95.9 Hypotension, unspecified; D64.9 Anemia, unspecified; F03.90 Unspecified dementia, unspecified severity, without behavioral disturbance, psychotic disturbance, mood disturbance, and anxiety; I10 Essential (primary) hypertension; M81.0 Age-related osteoporosis without current pathological fracture; F41.9 Anxiety disorder, unspecified; R29.6 Repeated falls; M19.90 Unspecified osteoarthritis, unspecified site; S00.03XA Contusion of scalp, initial encounter; S50.311A Abrasion of right elbow, initial encounter; W18.39XA Other fall on same level, initial encounter; Y93.89 Activity, other specified; Y92.009 Unspecified place in unspecified non-institutional (private) residence as the place of occurrence of the external cause; Y99.8 Other external cause status; Z85.3 Personal history of malignant neoplasm of breast; Z86.711 Personal history of pulmonary embolism; Z86.718 Personal history of other venous thrombosis and embolism; Z90.11 Acquired absence of right breast and nipple; Z90.710 Acquired absence of both cervix and uterus; Z91.81 History of falling; Z82.49 Family history of ischemic heart disease and other diseases of the circulatory system; Z82.62 Family history of osteoporosis; Z90.49 Acquired absence of other specified parts of digestive tract; Z79.899 Other long term (current) drug therapy; Z91.041 Radiographic dye allergy status; Z90.722 Acquired absence of ovaries, bilateral; Z90.79 Acquired absence of other genital organ(s)
CPT/HCPCS: 36415; 51702; 70450; 71045; 72125; 73502; 76000; 80048; 80053; 81001; 82436; 82553; 82570; 83735; 83930; 83935; 84100; 84132; 84133; 84295; 84300; 84484; 85007; 85014; 85018; 85025; 85610; 85730; 86300; 86850; 86900; 86901; 86920; 93005; 96361; 96374; 96376; A7015; C1713; C1887; J0171; J0690; J0780; J1100; J2001; J2270; J2370; J2405; J2704; J3010; J3480; J7030; P9016; 97110; 97116; 97530; 97535; 99285-25; G0378

== ENCOUNTER → 2020-11-24 | Outpatient (CLI) | payer MEDICARE ==
[2020-10-18 14:05] VITALS: BP 107/66
[~2020-11-24] MED LIST changes: +ACET500T68 PO; +CLON-77 PO; -CLON0.5T11 PO; +MEMA10TA PO; +PSYL3.4P PO
--- NOTE | 2020-11-24 17:51 | KCIC ---
EXAM: DUAL ENERGY X-RAY ABSORPTIOMETRY (DEXA). HISTORY: Postmenopausal screening. FINDINGS: The lowest measured T-score is -4.7 in the lumbar spine, based on a bone mineral density of 0.519 g/cm^2. Vertebroplasty changes are noted at L3 and within the lower thoracic spine. Refer to t worksheets for full detail. No comparison examinations are available. IMPRESSION: Osteoporosis. Bone mineral density yields a T-score of -2.5 or less. Fracture risk is high. FRAX was not calculated. METHODOLOGY: Dual energy x-ray absorptiometry was performed to measure bone mineral density. The foll owing analysis is based on the 2019 Official Positions of the International Society for Clinical Dens itometry: Measurements of the hips and the average of L1-L4 are preferred. When the spine and/or hip cannot be feasibly measured or interpreted, or in the setting of hyperparathyroidism, distal radial bone minera l density may be measured. The lumbar spine T-score is based on the average bone mineral density of L1-L4. In the setting of art ifact or anatomic abnormality, some lumbar levels may be excluded, and the remaining levels used for calculation. A single lumbar level is not used for diagnosis, and if only a single level is available for assessment, another anatomic site will be used to assign a diagnosis. The hip T-score is based on the bone mineral density measurement of the femoral neck or total proxima l femur of either side, whichever is lowest. Bilateral mean values are not used for diagnosis. The forearm T-score is derived from 33% of the distal radius of the nondominant forearm. For postmenopausal and perimenopausal women, and men age 50 or older, of all ethnic groups, T-scores are calculated through comparison of the current measurement with the NHANES III database standard fo r females aged 20-29 years. The lowest T-score of the evaluated anatomic sites is used to a ssign a diagnosis based on the World Health Organization densitometric classification. In premenopausal females and males younger than age 50, a Z-score is calculated based on population s pecific reference data for patient sex and self-reported ethnicity. Electronically signed by: Rip Rubi MD (11/24/2020 5:48 PM) [id number]
== END ==
LOC: KCIC DEXA 13:57
PROVIDERS: ATTEND Family Medicine
DX: M81.0 Age-related osteoporosis without current pathological fracture (principal)
CPT/HCPCS: 77080

== ENCOUNTER 2021-04-13 11:06 | Emergency (ER) | payer MEDICARE ==
[~2021-04-13] VITALS: Ht 157.5 cm; Wt 45.4 kg
[~2021-04-13 11:06] MED LIST changes: -CITA10TA4 PO; +CITA10TA5 PO
--- NOTE | 2021-04-13 11:22 | ED.ADGEN ---
Past Medical History Past Medical History: Anxiety, Cancer Additional Past Medical Histor: BREAST CANCER Past Surgical History: Hysterectomy, Tonsillectomy, Other Additional Past Surgical Histo: RIGHT MASTECTOMY Smoking Status: Never Smoker Alcohol Use: Occasionally Drug Use: None General Adult EDM: Chief Complaint: MECHANICAL FALL HPI: HPI: Patient is a 89-year-old female who arrives via EMS after falling at her residence. Patient is a resident at a memory care facility and fell onto her left hip. Patient states now she has some slight pain of her left hip however she is unaware of how this occurred as her dementia is very advanced. The p ofelia's is present however he does not have any information with respect to the injury itself. The patient denies any head or neck pain. She denies knowledge of any injury otherwise. She is awake, alert and at her functional baseline Review of Systems: Review of Systems: Constitutional: Denies fever or chills. [] Eyes: Denies change in visual acuity. [] HENT: Denies nasal congestion or sore throat. [] Respiratory: Denies cough or shortness of breath. [] Cardiovascular: Denies chest pain or edema. [] GI: Denies abdominal pain, nausea, vomiting, bloody stools or diarrhea. [] : Denies dysuria. [] Musculoskeletal: Reports left hip pain. Denies back pain or joint pain. [] Integument: Denies rash. [] Neurologic: Denies headache, focal weakness or sensory changes. [] Endocrine: Denies polyuria or polydipsia. [] Lymphatic: Denies swollen glands. [] Psychiatric: Denies depression or anxiety. [] Allergies: Allergies: Allergies Coded Allergies Type Severity Reaction Last Updated Verified aspirin Allergy Intermediate UNKNOWN 04/13/21 Yes iodine Allergy Intermediate IV dye- hives 05/15/18 Yes Physical Exam: PE: Constitutional: Well developed, well nourished, no acute distress, non-toxic appearance. [] HENT: Normocephalic, atraumatic, bilateral external ears normal, oropharynx moist, no oral exudates, nose normal. [] Eyes: PERRLA, EOMI, conjunctiva normal, no discharge. [] Neck: Normal range of motion, no tenderness, supple, no stridor. [] Cardiovascular:Heart rate regular rhythm, no murmur [] Lungs & Thorax: Bilateral breath sounds clear to auscultation [] Abdomen: Bowel sounds normal, soft, no tenderness, no masses, no pulsatile masses. [] Skin: Warm, dry, no erythema, no rash. [] Back: No tenderness, no CVA tenderness. [] Extremities: Patient has minimal tenderness to palpation of the left hip. There is no shortening or rotation present. no cyanosis, no clubbing, ROM intact, no edema. [] Neurologic: Alert and oriented X 3, normal motor function, normal sensory function, no focal deficits noted. [] Psychologic: Affect normal, judgement normal, mood normal. [] Current Patient Data: Vital Signs: Vital Signs Date Time Temp Pulse Resp B/P (MAP) Pulse Ox O2 Delivery O2 Flow Rate FiO2 04/13/21 11:06 97.4 90 20 123/80 (94) 96 Room Air 97.4 EKG: EKG: [] Heart Score: C/O Chest Pain: No Risk Factors: Risk Factors: DM, Current or recent (<one month) smoker, HTN, HLP, family history of CAD, obesity. Risk Scores: Score 0 - 3: 2.5% MACE over next 6 weeks - Discharge Home Score 4 - 6: 20.3% MACE over next 6 weeks - Admit for Clinical Observation Score 7 - 10: 72.7% MACE over next 6 weeks - Early Invasive Strategies Radiology/Procedures: Radiology/Procedures: [][facility] [address] [place] [address] IMAGING REPORT Signed PATIENT: VICKIE LAU ACCOUNT: [id number] : 1930 LOCATION: ER AGE: 89 SEX: F EXAM STATUS: PRE ER ORD. PHYSICIAN: MABEL RAZA DO REASON: PAIN/FALL PROCEDURE: HIP LEFT 2V WITH PELVIS XR BILATERAL HIP (WITH OR WITHOUT PELVIS) LEFT 2 VIEWS History: Reason: PAIN/FALL / Spl. Instructions: / History: Technique: AP view the pelvis and 2 additional views of the left hip. Comparison: January 18, 2019 Findings: Internal fixation left femur fracture. Displaced lesser and greater trochanter fracture fragments, similar compared to prior. No periarticular lucency. No new fracture. Lower lumbar spondylosis. Postoperative changes overlying the pelvis. Bilateral hip DJD. Impression: 1. No acute osseous abnormality. 2. Internal fixation prior left femur fracture. Electronically signed by: Stoney Torres DO (04/13/2021 12:50 PM) [id number] DICTATED and SIGNED BY: STONEY TORRES DO DATE: 04/13/21 [id number] Course & Med Decision Making: Course & Med Decision Making Pertinent Labs and Imaging studies reviewed. (See chart for details) [] Dragon Disclaimer: Dragon Disclaimer: This electronic medical record was generated, in whole or in part, using a voice recognition dictation system. Departure Departure Impression: Primary Impression: Fall Additional Impression: Contusion of left hip, initial encounter Disposition: HOME / SELF CARE / HOMELESS Condition: STABLE Referrals: ELISA MITCHELL MD (PCP) Patient Instructions: Contusion, Fall Prevention and Home Safety Scripts Acetaminophen With Codeine (ACETAMINOPHEN-COD #3 TABLET) 1 Each Tablet 1 TAB PO PRN Q6HRS PRN for PAIN for 3 Days, #12 TAB Prov: MABEL RAZA DO 04/13/21 Problem Qualifiers MABEL RZAA DO Apr 13, 2021 11:22
--- NOTE | 2021-04-13 12:52 | RAD ---
XR BILATERAL HIP (WITH OR WITHOUT PELVIS) LEFT 2 VIEWS History: Reason: PAIN/FALL / Spl. Instructions: / History: Technique: AP view the pelvis and 2 additional views of the left hip. Comparison: January 18, 2019 Findings: Internal fixation left femur fracture. Displaced lesser and greater trochanter fracture fragments, si milar compared to prior. No periarticular lucency. No new fracture. Lower lumbar spondylosis. Postope rative changes overlying the pelvis. Bilateral hip DJD. Impression: 1. No acute osseous abnormality. 2. Internal fixation prior left femur fracture. Electronically signed by: Stoney Torres DO (04/13/2021 12:50 PM) [id number]
[2021-04-13] MEDS ORDERED: ACET1TAB33 PO (13:01)
[2021-04-13] MEDS ORDERED: ACETAMINOPHEN/CODEINE 300/30MG TABLET. PO ONE (14:00)
[2021-04-13 15:39] VITALS: BP 99/59
== END 2021-04-13 16:15 | disposition home or self-care (01) ==
LOC: ER 11:06
DX: S70.02XA Contusion of left hip, initial encounter (principal); F03.90 Unspecified dementia, unspecified severity, without behavioral disturbance, psychotic disturbance, mood disturbance, and anxiety; M47.816 Spondylosis without myelopathy or radiculopathy, lumbar region; Z88.6 Allergy status to analgesic agent; Z88.8 Allergy status to other drugs, medicaments and biological substances; M16.0 Bilateral primary osteoarthritis of hip; Z90.710 Acquired absence of both cervix and uterus; W18.39XA Other fall on same level, initial encounter; Y93.89 Activity, other specified; Y92.89 Other specified places as the place of occurrence of the external cause; Y99.8 Other external cause status
CPT/HCPCS: 73502; 99285-25